=== PATIENT | male | born 1995 | race American Indian/Alaskan Native ===

== ENCOUNTER 2018-01-14 15:11 | Emergency (ER) | payer SELFPAY ==
[2018-01-14] MEDS ORDERED: REGLAN IV ONE (19:26)
[2018-01-14] MEDS ORDERED: TORADOL IV ONE (19:26)
[2018-01-14] MEDS ORDERED: BENADRYL IV ONE (19:26)
[2018-01-14] MEDS ORDERED: NACL 0.9% 1000 ML 1,000 ML IV ONE (19:26)
--- NOTE | 2018-01-14 19:44 | Emergency Department Report ---
Vomiting/Diarrhea - [facility] Chief Complaint: Nausea/Vomiting/Diarrhea Stated Complaint: POSS ALCOHOL POISONING/VOMITING Time Seen by Provider: 01/14/18 19:25 Duration: 3 Days Severity: moderate Nausea/Vomiting Severity: Moderate Diarrhea Severity: None Other History: 22-year-old -[place] male presents to the emergency room for complaint of nausea and vomiting and headache feels is related to alcohol ingestion. Patient reports on Wednesday he had 3 drinks tequila and 1 rum since then he's had reported bloody vomitus and vomiting since Wednesday body aches and headache. ED Review of Systems ROS: Stated complaint: POSS ALCOHOL POISONING/VOMITING Other details as noted in HPI ED Past Medical Hx - Past Medical History Previous Medical History?: No Hx Kidney Stones: No - Surgical History Past Surgical History?: No - Social History Smoking Status: Never Smoker Substance Use Type: Alcohol Vomiting Diarrhea Exam - Exam General: Vital signs noted. No distress. Alert and acting appropriately. Neurologic: Alert and oriented, no deficits. Musculoskeletal: Unremarkable. ED Course Vital Signs 01/14/18 15:39 Temperature 99 F Pulse Rate 92 H Respiratory 16 Rate Blood Pressure 120/77 O2 Sat by Pulse 96 Oximetry - Reevaluation(s) Reevaluation #1: 01/14/18 22:58 Patient has completed 1 L of fluids and reports he feels much better now ED Medical Decision Making - Lab Data Result diagrams: 01/14/18 19:44 01/14/18 19:44 Critical care attestation.: If time is entered above; I have spent that time in minutes in the direct care of this critically ill patient, excluding procedure time. ED Disposition Clinical Impression: Nausea and vomiting Qualifiers: Vomiting type: unspecified Vomiting Intractability: intractable Qualified Code( s): R11.2 - Nausea with vomiting, unspecified Disposition: DC-01 TO HOME OR SELFCARE Is pt being admited?: No Does the pt Need Aspirin: No Condition: Stable Instructions: Gastritis (ED) Additional Instructions: Please continue to drink plenty of fluids such as water and advance her diet as tolerated. If your symptoms persist or gets worse please follow-up with the primary care provider. Referrals: PRIMARY CARE, [Primary Care Provider] - 3-5 Days [facility] [Provider Group] - 3-5 Days Forms: Work/School Release Form(ED), Accompanied Note
[2018-01-14 19:59] LABS: Basophils % (Auto) 0.5 % (0.0-1.8); Eosinophils % (Auto) 0.1 % (0.0-4.3); Hematocrit 40.8 % (35.5-45.6); Hemoglobin 13.6 gm/dl (11.8-15.2); Lymphocytes % (Auto) 30.3 % (13.4-35.0); Mean Corpuscular HGB Conc 34 % (32-34); Mean Corpuscular Hemoglobin 30 pg (28-32); Mean Corpuscular Volume 90 fl (84-94); Monocytes % (Auto) 14.3 % (0.0-7.3); Platelet Count 283 K/mm3 (140-440); Red Blood Count 4.51 M/mm3 (3.65-5.03)
[2018-01-14 20:25] LABS: Benzodiazepines Screen,Urine PRESUMPTIVE NEGATIVE; Cannabinoid Screen,Urine PRESUMPTIVE NEGATIVE; Cocaine Screen,Urine PRESUMPTIVE NEGATIVE; Methadone Screen,Urine PRESUMPTIVE NEGATIVE; Opiate Screen,Urine PRESUMPTIVE NEGATIVE
[2018-01-14 21:01] LABS: Amphetamine Screen,Urine PRESUMPTIVE NEGATIVE
[2018-01-14 21:22] LABS: Alanine Aminotransferase 13 units/L (7-56); Albumin 4.6 g/dL (3.9-5); BUN/Creatinine Ratio 19; Blood Urea Nitrogen 19 mg/dL (9-20); Calcium 9.8 mg/dL (8.4-10.2); Hemolysis Index 24
[2018-01-14 22:37] LABS: Bilirubin,Urine NEG (Negative); Blood,Urine NEG (Negative); Color,Urine Yellow (Yellow); Mucus,Urine 2+ /HPF
[2018-01-14 23:20] VITALS: BP 124/73
== END 2018-01-14 23:20 | disposition home or self-care (01) ==
LOC: ED 15:11
DX: R11.2 Nausea with vomiting, unspecified (principal); Z79.899 Other long term (current) drug therapy
CPT/HCPCS: 36415; 80053; 80307; 81001; 85025; 96361; 96374; 96375; 99283; G0480; J1200; J1885; J2765; J7030; 80320

== ENCOUNTER 2018-02-07 14:15 | Inpatient (IN) | payer SELFPAY ==
[2018-02-07] MEDS ORDERED: NACL 0.9% 1000 ML 1,000 ML IV ONE (14:57)
[2018-02-07] MEDS ORDERED: TYLENOL PO ONE (14:58)
[2018-02-07] MEDS ORDERED: TYLENOL ONE (15:03)
[2018-02-07] MEDS ORDERED: NACL 0.9% 500 ML 500 ML IV ONE (15:23)
[2018-02-07 15:30] LABS: Basophils % (Auto) 0.1 % (0.0-1.8); Hematocrit 40.7 % (35.5-45.6); Hemoglobin 13.7 gm/dl (11.8-15.2); Lymphocytes # (Auto) 2.2 K/mm3 (1.2-5.4); Lymphocytes % (Auto) 21.1 % (13.4-35.0); Mean Corpuscular HGB Conc 34 % (32-34); Mean Corpuscular Hemoglobin 31 pg (28-32); Mean Corpuscular Volume 91 fl (84-94); Monocytes # (Auto) 1.3 K/mm3 (0.0-0.8); Monocytes % (Auto) 12.8 % (0.0-7.3); Platelet Count 278 K/mm3 (140-440); Red Blood Count 4.47 M/mm3 (3.65-5.03); Red Cell Distribution Width 15.5 % (13.2-15.2)
[2018-02-07 15:42] LABS: INR 1.15 (0.87-1.13)
[2018-02-07 15:43] LABS: Partial Thromboplastin Time 35.1 Sec. (24.2-36.6)
[2018-02-07 16:07] LABS: Alanine Aminotransferase 13 units/L (7-56); Albumin 4.4 g/dL (3.9-5); BUN/Creatinine Ratio 8; Blood Urea Nitrogen 9 mg/dL (9-20); Calcium 9.5 mg/dL (8.4-10.2); Hemolysis Index 3; Lipase 14 units/L (13-60)
[2018-02-07 16:47] LABS: INR 1.15 (0.87-1.13)
[2018-02-07] MEDS ORDERED: ZOFRAN IV ONE (17:09)
[2018-02-07] MEDS ORDERED: MORPHINE IV ONE (17:09)
[2018-02-07] MEDS ORDERED: NACL 0.9% 1000 ML IV ONE (17:10)
--- NOTE | 2018-02-07 17:16 | Emergency Department Report ---
ED GI Bleed HPI - General Chief complaint: GI Bleed Stated complaint: BODY PAINS/BLOOD IN STOOL Time Seen by Provider: 02/07/18 16:59 Source: patient Mode of arrival: Ambulatory Limitations: No Limitations - History of Present Illness Initial comments: 22-year-old male with a past medical history of HIV presents to Hospital complaining of rectal pain and blood on his tissue when he wipes after bowel movements for the past one week. Last night he developed generalized body aches and chills and presents to the ER with 101.1 fever. Patient states his CD4 count 2 months ago was 690. He is taking HIV medication. He engages in receptive anal intercourse was last intercourse about one week ago. He complains of sore throat. He denies cough, chest pain, shortness of breath, abdominal pain, nausea, vomiting, diarrhea, or melena. Patient received Tylenol prior to my evaluation Severity scale (0 -10): 6 - Related Data Allergies Allergy/AdvReac Type Severity Reaction Status Date / Time No Known Allergies Allergy Verified 02/07/18 14:53 ED Review of Systems ROS: Stated complaint: BODY PAINS/BLOOD IN STOOL Other details as noted in HPI Comment: All other systems reviewed and negative ED Past Medical Hx - Past Medical History Hx Kidney Stones: No Additional medical history: HIV - Surgical History Past Surgical History?: No - Social History Smoking Status: Never Smoker Substance Use Type: Alcohol ED Physical Exam - General Limitations: No Limitations - Other Other exam information: General: No limitations, patient is alert in no acute distress Head exam: Atraumatic, normocephalic Eyes exam: Normal appearance ENT: Moist mucous membrane, normal oropharynx, no exudates, no thrush Neck exam: Normal inspection, full range of motion, no meningismus nontender Respiratory exam: Clear to auscultation bilateral, no wheezes, rales, crackles Cardiovascular: Normal rate and rhythm, normal heart sounds Abdomen: Soft, nondistended, left lower quadrant tenderness, with normal bowel sounds, no rebound, or guarding Rectal: Anal skin tenderness versus wart. Guaiac positive brown stool without gross blood or melena. No fluctuance and rectal. Or visible abscess Extremity: Full range of motion normal inspection no deformity Back: Normal Inspection, full range of motion, no tenderness Neurologic: Alert, oriented x3, cranial nerves intact, no motor or sensory deficit Psychiatric: normal affect, normal mood Skin: Warm, dry, intact ED Course Vital Signs 02/07/18 02/07/18 02/07/18 14:54 16:01 16:56 Temperature 101.1 F H Pulse Rate 116 H Respiratory 18 16 Rate Blood Pressure 109/73 Blood Pressure [Right] O2 Sat by Pulse 99 99 Oximetry 02/07/18 02/07/18 02/07/18 17:00 17:09 18:30 Temperature Pulse Rate 104 H Respiratory 19 16 16 Rate Blood Pressure 110/78 Blood Pressure [Right] O2 Sat by Pulse 99 100 Oximetry 02/07/18 02/07/18 02/07/18 19:26 20:00 21:00 Temperature 98.2 F Pulse Rate 111 H 99 H 102 H Respiratory 17 15 19 Rate Blood Pressure 107/75 109/69 Blood Pressure 105/67 [Right] O2 Sat by Pulse 97 100 Oximetry - Consultations Consultation #1: 02/07/18 22:[address] Lafleur general surgeon production welder. Will see patient in consult and recommends admission to the hospitalist. ED Medical Decision Making - Lab Data Result diagrams: 02/07/18 15:07 02/07/18 15:07 Lab Results 02/07/18 02/07/18 02/07/18 Range/Units 15:07 15:07 15:07 WBC 10.2 (4.5-11.0) K/mm3 RBC 4.47 (3.65-5.03) M/mm3 Hgb 13.7 (11.8-15.2) gm/dl Hct 40.7 (35.5-45.6) % MCV 91 (84-94) fl MCH 31 (28-32) pg MCHC 34 (32-34) % RDW 15.5 H (13.2-15.2) % Plt Count 278 (140-440) K/mm3 Lymph % (Auto) 21.1 (13.4-35.0) % Stewart % (Auto) 12.8 H (0.0-7.3) % Eos % (Auto) 0.0 (0.0-4.3) % Baso % (Auto) 0.1 (0.0-1.8) % Lymph # 2.2 (1.2-5.4) K/mm3 Stewart # 1.3 H (0.0-0.8) K/mm3 Eos # 0.0 (0.0-0.4) K/mm3 Baso # 0.0 (0.0-0.1) K/mm3 Seg Neutrophils % 66.0 (40.0-70.0) % Seg Neutrophils # 6.8 (1.8-7.7) K/mm3 PT 15.3 H (12.2-14.9) Sec. INR 1.15 H (0.87-1.13) APTT 35.1 (24.2-36.6) Sec. VBG pH (7.320-7.420) Sodium 137 (137-145) mmol/L Potassium 4.5 (3.6-5.0) mmol/L Chloride 99.7 (98-107) mmol/L Carbon Dioxide 26 (22-30) mmol/L Anion Gap 16 mmol/L BUN 9 (9-20) mg/dL Creatinine 1.1 (0.8-1.5) mg/dL Estimated GFR > 60 ml/min BUN/Creatinine Ratio 8 % Glucose 104 H (75-100) mg/dL Lactic Acid (0.7-2.0) mmol/L Calcium 9.5 (8.4-10.2) mg/dL Magnesium (1.7-2.3) mg/dL Total Bilirubin 0.60 (0.1-1.2) mg/dL AST 24 (5-40) units/L ALT 13 (7-56) units/L Alkaline Phosphatase 75 (35-129) units/L Total Protein 9.2 H (6.3-8.2) g/dL Albumin 4.4 (3.9-5) g/dL Albumin/Globulin Ratio 0.9 % Lipase 14 (13-60) units/L Urine Color (Yellow) Urine Turbidity (Clear) Urine pH (5.0-7.0) Ur Specific Mcclelland (1.003-1.030) Urine Protein (Negative) mg/dL Urine Glucose (UA) (Negative) mg/dL Urine Ketones (Negative) mg/dL Urine Blood (Negative) Urine Nitrite (Negative) Urine Bilirubin (Negative) Urine Urobilinogen (<2.0) mg/dL Ur Leukocyte Esterase (Negative) Urine WBC (Auto) (0.0-6.0) /HPF Urine RBC (Auto) (0.0-6.0) /HPF U Epithel Cells (Auto) (0-13.0) /HPF Urine Mucus /HPF Blood Type Antibody Screen 02/07/18 02/07/18 02/07/18 Range/Units 15:07 15:07 16:20 WBC (4.5-11.0) K/mm3 RBC (3.65-5.03) M/mm3 Hgb (11.8-15.2) gm/dl Hct (35.5-45.6) % MCV (84-94) fl MCH (28-32) pg MCHC (32-34) % RDW (13.2-15.2) % Plt Count (140-440) K/mm3 Lymph % (Auto) (13.4-35.0) % Stewart % (Auto) (0.0-7.3) % Eos % (Auto) (0.0-4.3) % Baso % (Auto) (0.0-1.8) % Lymph # (1.2-5.4) K/mm3 Stewart # (0.0-0.8) K/mm3 Eos # (0.0-0.4) K/mm3 Baso # (0.0-0.1) K/mm3 Seg Neutrophils % (40.0-70.0) % Seg Neutrophils # (1.8-7.7) K/mm3 PT (12.2-14.9) Sec. INR (0.87-1.13) APTT (24.2-36.6) Sec. VBG pH (7.320-7.420) Sodium (137-145) mmol/L Potassium (3.6-5.0) mmol/L Chloride (98-107) mmol/L Carbon Dioxide (22-30) mmol/L Anion Gap mmol/L BUN (9-20) mg/dL Creatinine (0.8-1.5) mg/dL Estimated GFR ml/min BUN/Creatinine Ratio % Glucose (75-100) mg/dL Lactic Acid 1.00 (0.7-2.0) mmol/L Calcium (8.4-10.2) mg/dL Magnesium 1.90 (1.7-2.3) mg/dL Total Bilirubin (0.1-1.2) mg/dL AST (5-40) units/L ALT (7-56) units/L Alkaline Phosphatase (35-129) units/L Total Protein (6.3-8.2) g/dL Albumin (3.9-5) g/dL Albumin/Globulin Ratio % Lipase (13-60) units/L Urine Color (Yellow) Urine Turbidity (Clear) Urine pH (5.0-7.0) Ur Specific Mcclelland (1.003-1.030) Urine Protein (Negative) mg/dL Urine Glucose (UA) (Negative) mg/dL Urine Ketones (Negative) mg/dL Urine Blood (Negative) Urine Nitrite (Negative) Urine Bilirubin (Negative) Urine Urobilinogen (<2.0) mg/dL Ur Leukocyte Esterase (Negative) Urine WBC (Auto) (0.0-6.0) /HPF Urine RBC (Auto) (0.0-6.0) /HPF U Epithel Cells (Auto) (0-13.0) /HPF Urine Mucus /HPF Blood Type O NEGATIVE Antibody Screen Negative 02/07/18 02/07/18 02/07/18 Range/Units 16:20 16:20 16:20 WBC (4.5-11.0) K/mm3 RBC (3.65-5.03) M/mm3 Hgb (11.8-15.2) gm/dl Hct (35.5-45.6) % MCV (84-94) fl MCH (28-32) pg MCHC (32-34) % RDW (13.2-15.2) % Plt Count (140-440) K/mm3 Lymph % (Auto) (13.4-35.0) % Stewart % (Auto) (0.0-7.3) % Eos % (Auto) (0.0-4.3) % Baso % (Auto) (0.0-1.8) % Lymph # (1.2-5.4) K/mm3 Stewart # (0.0-0.8) K/mm3 Eos # (0.0-0.4) K/mm3 Baso # (0.0-0.1) K/mm3 Seg Neutrophils % (40.0-70.0) % Seg Neutrophils # (1.8-7.7) K/mm3 PT 15.3 H (12.2-14.9) Sec. INR 1.15 H (0.87-1.13) APTT (24.2-36.6) Sec. VBG pH 7.340 (7.320-7.420) Sodium (137-145) mmol/L Potassium (3.6-5.0) mmol/L Chloride (98-107) mmol/L Carbon Dioxide (22-30) mmol/L Anion Gap mmol/L BUN (9-20) mg/dL Creatinine (0.8-1.5) mg/dL Estimated GFR ml/min BUN/Creatinine Ratio % Glucose (75-100) mg/dL Lactic Acid 1.20 (0.7-2.0) mmol/L Calcium (8.4-10.2) mg/dL Magnesium (1.7-2.3) mg/dL Total Bilirubin (0.1-1.2) mg/dL AST (5-40) units/L ALT (7-56) units/L Alkaline Phosphatase (35-129) units/L Total Protein (6.3-8.2) g/dL Albumin (3.9-5) g/dL Albumin/Globulin Ratio % Lipase (13-60) units/L Urine Color (Yellow) Urine Turbidity (Clear) Urine pH (5.0-7.0) Ur Specific Mcclelland (1.003-1.030) Urine Protein (Negative) mg/dL Urine Glucose (UA) (Negative) mg/dL Urine Ketones (Negative) mg/dL Urine Blood (Negative) Urine Nitrite (Negative) Urine Bilirubin (Negative) Urine Urobilinogen (<2.0) mg/dL Ur Leukocyte Esterase (Negative) Urine WBC (Auto) (0.0-6.0) /HPF Urine RBC (Auto) (0.0-6.0) /HPF U Epithel Cells (Auto) (0-13.0) /HPF Urine Mucus /HPF Blood Type Antibody Screen 02/07/18 02/07/18 Range/Units 19:45 20:02 WBC (4.5-11.0) K/mm3 RBC (3.65-5.03) M/mm3 Hgb (11.8-15.2) gm/dl Hct (35.5-45.6) % MCV (84-94) fl MCH (28-32) pg MCHC (32-34) % RDW (13.2-15.2) % Plt Count (140-440) K/mm3 Lymph % (Auto) (13.4-35.0) % Stewart % (Auto) (0.0-7.3) % Eos % (Auto) (0.0-4.3) % Baso % (Auto) (0.0-1.8) % Lymph # (1.2-5.4) K/mm3 Stewart # (0.0-0.8) K/mm3 Eos # (0.0-0.4) K/mm3 Baso # (0.0-0.1) K/mm3 Seg Neutrophils % (40.0-70.0) % Seg Neutrophils # (1.8-7.7) K/mm3 PT (12.2-14.9) Sec. INR (0.87-1.13) APTT (24.2-36.6) Sec. VBG pH (7.320-7.420) Sodium (137-145) mmol/L Potassium (3.6-5.0) mmol/L Chloride (98-107) mmol/L Carbon Dioxide (22-30) mmol/L Anion Gap mmol/L BUN (9-20) mg/dL Creatinine (0.8-1.5) mg/dL Estimated GFR ml/min BUN/Creatinine Ratio % Glucose (75-100) mg/dL Lactic Acid 1.40 (0.7-2.0) mmol/L Calcium (8.4-10.2) mg/dL Magnesium (1.7-2.3) mg/dL Total Bilirubin (0.1-1.2) mg/dL AST (5-40) units/L ALT (7-56) units/L Alkaline Phosphatase (35-129) units/L Total Protein (6.3-8.2) g/dL Albumin (3.9-5) g/dL Albumin/Globulin Ratio % Lipase (13-60) units/L Urine Color Yellow (Yellow) Urine Turbidity Clear (Clear) Urine pH 5.0 (5.0-7.0) Ur Specific Mcclelland 1.026 (1.003-1.030) Urine Protein <15 mg/dl (Negative) mg/dL Urine Glucose (UA) Neg (Negative) mg/dL Urine Ketones Neg (Negative) mg/dL Urine Blood Mod (Negative) Urine Nitrite Neg (Negative) Urine Bilirubin Neg (Negative) Urine Urobilinogen < 2.0 (<2.0) mg/dL Ur Leukocyte Esterase Neg (Negative) Urine WBC (Auto) 2.0 (0.0-6.0) /HPF Urine RBC (Auto) 50.0 (0.0-6.0) /HPF U Epithel Cells (Auto) 1.0 (0-13.0) /HPF Urine Mucus 1+ /HPF Blood Type Antibody Screen - EKG Data -: EKG Interpreted by Me EKG shows normal: sinus rhythm, axis (qrs 24), QRS complexes (qrsd 83), ST-T waves (no stemi/t inv) Rate: tachycardia (112) - EKG Data When compared to previous EKG there are: previous EKG unavailable - Medical Decision Making Rectal bleeding after bowel movement No gross blood on rectal exam although guaiac positive H&H normal Fever with rectal pain Empirically covered with Zosyn 30 ml/kg bolus of normal saline as per sepsis protocol CT abdomen and pelvis: Borderline findings for acute appendicitis. Patient reexamined after results obtained and persistently has left lower quadrant pain without right lower quadrant tenderness. Case discussed with surgeon production welder and patient will be admitted to hospitalist with surgical consultation and monitoring UA shows moderate blood but no signs of infection - Differential Diagnosis rectal/perirectal abscess, diverticulitis, proctitis Critical Care Time: No Critical care attestation.: If time is entered above; I have spent that time in minutes in the direct care of this critically ill patient, excluding procedure time. ED Disposition Clinical Impression: Fever, Rectal bleeding, Left lower quadrant pain, HIV positive Disposition: OP ADMIT IP TO THIS HOSP Is pt being admited?: Yes Condition: Stable Time of Disposition: 22:08 (Dr. Pitts/Hospitalist)
--- NOTE | 2018-02-07 17:18 | XRay Report ---
FINAL REPORT EXAM: XR CHEST 1V AP HISTORY: sepsis TECHNIQUE: AP portable view of the chest PRIORS: None. FINDINGS: Lines, tubes, and devices: N/A Lungs and pleura: Trachea is normal in position. Lungs are clear of infiltrate, pleural effusion, vascular congestion, or pneumothorax. Cardiomediastinal silhouette: Cardiac and mediastinal silhouettes are unremarkable. Other: Bony structures are intact. IMPRESSION: No acute cardiopulmonary process seen.
[2018-02-07] MEDS ORDERED: ZOSYN/NS 4.5GM/100ML 4.5 GM/100 ML VIAL IV SCH (18:00)
[2018-02-07 20:05] LABS: Bilirubin,Urine NEG (Negative); Blood,Urine MOD (Negative); Color,Urine Yellow (Yellow); Mucus,Urine 1+ /HPF; Protein,Urine <15 mg/dL mg/dL (Negative); Urobilinogen,Urine < 2.0 mg/dL (<2.0)
--- NOTE | 2018-02-07 21:39 | Cat Scan Report ---
FINAL REPORT EXAM: CT ABDOMEN PELVIS W CON HISTORY: rectal pain, fever, LLQ pain TECHNIQUE: Standard enhanced CT of the abdomen and pelvis. Coronal and sagittal reconstruction was also performed. Delayed imaging through the kidneys and bladder was also obtained. Contrast: 100 mL Omnipaque 300 given IV. Oral contrast was given PRIORS: None. FINDINGS: The appendix measures 8 mm in diameter and has mild diffuse wall thickening. It does not fill with oral contrast on delayed imaging. The appendix dips down into the right side of the pelvis. However, no surrounding inflammation is seen in the adjacent fat. No evidence for abscess is seen. These findings are borderline for acute appendicitis and should be correlated clinically. (Axial image 67, series 4, coronal image 78). The rectum appears normal. Within the abdomen, the liver, spleen, pancreas, gallbladder, adrenal glands, and kidneys are unremarkable. No evidence for retroperitoneal or pelvic lymphadenopathy is seen. There is moderate stool present throughout the entire colon. The bowel loops have normal caliber. No soft tissue mass, fluid collection, inflammatory change, or free air is seen within the abdomen or pelvis. Within the pelvis, the bladder is unremarkable. The prostate is normal. No evidence for mass or lymphadenopathy is seen in the pelvis. Images through the upper abdomen include the lung bases which are expanded and clear. Bony structures show no focal abnormalities and are intact. IMPRESSION: 1. Normal appearance to the rectum. 2. The appendix is mildly dilated in size with wall thickening but no surrounding inflammation. It does not fill with oral contrast. These findings can be consistent with acute appendicitis. The appendix dips into the right pelvis.
[2018-02-07] MEDS ORDERED: MORPHINE IV PRN (23:27)
[2018-02-07] MEDS ORDERED: SODIUM CHLORIDE FLUSH SYRINGE 10 ML IV PRN (23:27)
[2018-02-07] MEDS ORDERED: ZOFRAN IV PRN (23:27)
--- NOTE | 2018-02-07 23:30 | History and Physical Report ---
History of Present Illness Date of examination: 02/07/18 History of present illness: 31-year-old man with a history HIV, CD4 count of 690 g the emergency room with complaint of abdominal pain located in the left lower quadrant which she described as sharp, intermittent, lasting for a few seconds, intensity5/10, no radiation, he cannot identify exacerbating factor. Admits to nausea no vomiting. He's been having blood per rectum only with bowel movements, once a day over the last 1 week. Today he complains of fever and chills. Stated he had blood per rectum 5 years ago when he was diagnosed with HIV Review of systems Constitutional: no weight loss, chills, fever Ears, eyes, nose, mouth and throat: no nasal congestion, no nasal discharge, no sinus pressure, no vision change, no red eye. Neck: No neck pain or rigidity. Cardiovascular: no chest pain, palpitations Respiratory: no cough, shortness of breath Gastrointestinal: + abdominal pain hematochezia Genitourinary : no frequency , no hematuria Musculoskeletal: no joint swelling or muscle ache Integumentary: no rash, no pruritis Neurological: no parathesias, no numbness, no focal weakness Endocrine: no cold or heat intolerance, no polyuria or polydipsia Hematologic/Lymphatic: no easy bruising, no easy bleeding, no gland swelling Allergic/Immunologic: no urticaria, no angioedema. PAST MEDICAL HISTORY: HIV PAST SURGICAL HISTORY: None SOCIAL HISTORY: No alcohol, no drugs, tobacco FAMILY HISTORY: Hypertension Medications and Allergies Allergies Allergy/AdvReac Type Severity Reaction Status Date / Time No Known Allergies Allergy Verified 02/07/18 14:53 Home Medications Medication Instructions Recorded Confirmed Last Taken Type Emtricita/Rilpivirine/Tenof Df 1 each PO DAILY 02/07/18 02/07/18 Unknown History [Complera Tablet] Active Meds: Active Medications Piperacillin Sod/Tazobactam Sod (Zosyn/Ns 4.5gm/100ml) 4.5 gm in 100 mls @ 200 mls/hr IV ONCE WINSOME Last Admin: 02/07/18 18:00 Dose: 200 mls/hr Exam - Physical Exam Narrative exam: Gen. appearance: Patient lying in bed, no apparent distress HEENT: Normocephalic, atraumatic, pupils equally round and reactive to light, extraocular movement intact, and no sclericterus,. No JVD or thyromegaly or nodule,neck supple, no carotid bruit ,mucous membranes moist, no exudate or erythema Heart: S1, S2, regular rate and rhythm Lungs: Clear bilaterally, breathing comfortable Abdomen: Positive bowel sounds, tender left lower quadrant, nondistended, no organomegaly Extremity:no edema cyanosis, clubbing Skin: no rash, dry, warm Neuro: Oriented 3, cranial nerves II-12 intact, speech is fluent, motor and sensory intact Rectal: Brown stool, heme positive - Constitutional Vitals: Temp Pulse Resp BP Pulse Ox 98.2 F 102 H 19 109/69 100 02/07/18 19:26 02/07/18 21:00 02/07/18 21:00 02/07/18 21:00 02/07/18 21:00 Results - Labs CBC & Chem 7: 02/07/18 15:07 02/07/18 15:07 Labs: Abnormal lab results 02/07/18 02/07/18 02/07/18 Range/Units 15:07 15:07 15:07 RDW 15.5 H (13.2-15.2) % Kemper % (Auto) 12.8 H (0.0-7.3) % Kemper # 1.3 H (0.0-0.8) K/mm3 PT 15.3 H (12.2-14.9) Sec. INR 1.15 H (0.87-1.13) Glucose 104 H (75-100) mg/dL Total Protein 9.2 H (6.3-8.2) g/dL 02/07/18 Range/Units 16:20 RDW (13.2-15.2) % Kemper % (Auto) (0.0-7.3) % Kemper # (0.0-0.8) K/mm3 PT 15.3 H (12.2-14.9) Sec. INR 1.15 H (0.87-1.13) Glucose (75-100) mg/dL Total Protein (6.3-8.2) g/dL - Imaging and Cardiology Chest x-ray: image reviewed CT scan - abdomen: report reviewed CT scan - pelvis: report reviewed Assessment and Plan Assessment Abdominal pain Possible appendicitis Blood per rectum SIRS Plan Admit to medicine Start IV fluid, IV Zosyn, follow cultures Check serial hemoglobin Consults surgery, GI, IV morphine DVT prophylaxis
[2018-02-08 02:43] LABS: Basophils % (Auto) 0.3 % (0.0-1.8); Eosinophils % (Auto) 0.1 % (0.0-4.3); Hematocrit 36.6 % (35.5-45.6); Hemoglobin 12.3 gm/dl (11.8-15.2); Lymphocytes # (Auto) 1.3 K/mm3 (1.2-5.4); Lymphocytes % (Auto) 16.5 % (13.4-35.0); Mean Corpuscular HGB Conc 34 % (32-34); Mean Corpuscular Hemoglobin 31 pg (28-32); Mean Corpuscular Volume 92 fl (84-94); Monocytes # (Auto) 1.1 K/mm3 (0.0-0.8); Monocytes % (Auto) 13.7 % (0.0-7.3); Platelet Count 207 K/mm3 (140-440); Red Blood Count 3.99 M/mm3 (3.65-5.03); Red Cell Distribution Width 15.2 % (13.2-15.2)
[2018-02-08] MEDS: ZOSYN/NS 4.5GM/100ML 4.5 GM/100 ML VIAL IV SCH ×3 (02:46→17:49)
[2018-02-08] MEDS: NACL 0.9% 1000 ML 1,000 ML IV SCH ×3 (02:47→23:48)
[2018-02-08 02:57] LABS: BUN/Creatinine Ratio 8; Blood Urea Nitrogen 8 mg/dL (9-20); Calcium 8.5 mg/dL (8.4-10.2); Hemolysis Index 4
[2018-02-08 05:28] LABS: Hematocrit 35.1 % (35.5-45.6); Hemoglobin 11.9 gm/dl (11.8-15.2)
[2018-02-08 09:36] LABS: Hematocrit 35.9 % (35.5-45.6); Hemoglobin 12.1 gm/dl (11.8-15.2)
[2018-02-08] MEDS: SODIUM CHLORIDE FLUSH SYRINGE 10 ML IV SCH ×2 (09:45→23:43)
--- NOTE | 2018-02-08 13:19 | Gastroenterology Consultation ---
<FERNY GOOD - Last Filed: 02/08/18 13:45> History of Present Illness - Reason for Consult Consult date: 02/08/18 BPR Requesting physician: GALEN CID - History of Present Illness Patient is a 22 y/o male with PMH of HIV who presented to ED with c/o LLQ abd pain with associated rectal pain and bright red blood on TP after BMs x 1 week. He also admits to generalized body aches and chills with fever noted upon admission. CT showed appendix mildly dilated to which surgery as been consulted but rectum had normal appearance. This afternoon patient was resting in bed w/o acute distress. No active signs of bleeding overnight or this am. No hematemesis or melena. Reports sharp rectal pain with defecation that lasts for seconds in duration along with scant amount of rectal bleeding intermittently on TP after BMs. Symptoms developed after anal intercourse last week. Denies wt loss, CP, SOB, dizziness, N/V, diarrhea, or constipation. Last colonoscopy was in [place] in 2017 which revealed a possible abscess that required draining per patient. Past History Past Medical History: HIV/AIDS Past Surgical History: Other (possible rectal abscess-s/p drainage 2017) Social history: denies: smoking, alcohol abuse Medications and Allergies Allergies Allergy/AdvReac Type Severity Reaction Status Date / Time No Known Allergies Allergy Verified 02/07/18 14:53 Home Medications Medication Instructions Recorded Confirmed Last Taken Type Emtricita/Rilpivirine/Tenof Df 1 each PO DAILY 02/07/18 02/07/18 Unknown History [Complera Tablet] Active Meds: Active Medications Acetaminophen (Tylenol) 650 mg PO Q4H PRN PRN Reason: Pain MILD(1-3)/Fever >100.5/PATEL Sodium Chloride (Nacl 0.9% 1000 Ml) 1,000 mls @ 150 mls/hr IV DIRECT [facility]OME Last Admin: 02/08/18 02:47 Dose: 150 mls/hr Piperacillin Sod/Tazobactam Sod (Zosyn/Ns 4.5gm/100ml) 4.5 gm in 100 mls @ 200 mls/hr IV Q8H [facility]OME; Protocol Last Admin: 02/08/18 09:49 Dose: 200 mls/hr Morphine Sulfate (Morphine) 2 mg IV Q4H PRN PRN Reason: Pain, Moderate (4-6) Ondansetron HCl (Zofran) 4 mg IV Q8H PRN PRN Reason: Nausea And Vomiting Sodium Chloride (Sodium Chloride Flush Syringe 10 Ml) 10 ml IV BID [facility] Last Admin: 02/08/18 09:45 Dose: 10 ml Sodium Chloride (Sodium Chloride Flush Syringe 10 Ml) 10 ml IV PRN PRN PRN Reason: LINE FLUSH Review of Systems - Review of Systems All systems: negative Constitutional: fever, chills Gastrointestinal: BRBPR, other (rectal pain) Exam - Constitutional Vital Signs: Temp Pulse Resp BP Pulse Ox 99.2 F 118 H 20 91/50 96 02/08/18 12:19 02/08/18 12:19 02/08/18 12:19 02/08/18 12:19 02/08/18 12:19 General appearance: no acute distress - Respiratory Respiratory: bilateral: CTA - Cardiovascular Rhythm: other (tachycardia) - Gastrointestinal General gastrointestinal: Present: soft, non-tender, non-distended, normal bowel sounds Rectal Exam: tenderness, stool brown, no mass - Neurologic Neurological: alert and oriented x3 - Labs CBC & Chem 7: 02/08/18 09:23 02/08/18 02:31 Lab Results: Laboratory Results - last 24 hr 02/07/18 02/07/18 02/07/18 15:07 15:07 15:07 WBC 10.2 RBC 4.47 Hgb 13.7 Hct 40.7 MCV 91 MCH 31 MCHC 34 RDW 15.5 H Plt Count 278 Lymph % (Auto) 21.1 [place] % (Auto) 12.8 H Eos % (Auto) 0.0 Baso % (Auto) 0.1 Lymph # 2.2 [place] # 1.3 H Eos # 0.0 Baso # 0.0 Seg Neutrophils % 66.0 Seg Neutrophils # 6.8 PT 15.3 H INR 1.15 H APTT 35.1 VBG pH Sodium 137 Potassium 4.5 Chloride 99.7 Carbon Dioxide 26 Anion Gap 16 BUN 9 Creatinine 1.1 Estimated GFR > 60 BUN/Creatinine Ratio 8 Glucose 104 H Lactic Acid Calcium 9.5 Magnesium Total Bilirubin 0.60 AST 24 ALT 13 Alkaline Phosphatase 75 Total Protein 9.2 H Albumin 4.4 Albumin/Globulin Ratio 0.9 Lipase 14 Urine Color Urine Turbidity Urine pH Ur Specific [place] Urine Protein Urine Glucose (UA) Urine Ketones Urine Blood Urine Nitrite Urine Bilirubin Urine Urobilinogen Ur Leukocyte Esterase Urine WBC (Auto) Urine RBC (Auto) U Epithel Cells (Auto) Urine Mucus Blood Type Antibody Screen 02/07/18 02/07/18 02/07/18 15:07 15:07 16:20 WBC RBC Hgb Hct MCV MCH MCHC RDW Plt Count Lymph % (Auto) [place] % (Auto) Eos % (Auto) Baso % (Auto) Lymph # [place] # Eos # Baso # Seg Neutrophils % Seg Neutrophils # PT INR APTT VBG pH Sodium Potassium Chloride Carbon Dioxide Anion Gap BUN Creatinine Estimated GFR BUN/Creatinine Ratio Glucose Lactic Acid 1.00 Calcium Magnesium 1.90 Total Bilirubin AST ALT Alkaline Phosphatase Total Protein Albumin Albumin/Globulin Ratio Lipase Urine Color Urine Turbidity Urine pH Ur Specific [place] Urine Protein Urine Glucose (UA) Urine Ketones Urine Blood Urine Nitrite Urine Bilirubin Urine Urobilinogen Ur Leukocyte Esterase Urine WBC (Auto) Urine RBC (Auto) U Epithel Cells (Auto) Urine Mucus Blood Type O NEGATIVE Antibody Screen Negative 02/07/18 02/07/18 02/07/18 16:20 16:20 16:20 WBC RBC Hgb Hct MCV MCH MCHC RDW Plt Count Lymph % (Auto) [place] % (Auto) Eos % (Auto) Baso % (Auto) Lymph # [place] # Eos # Baso # Seg Neutrophils % Seg Neutrophils # PT 15.3 H INR 1.15 H APTT VBG pH 7.340 Sodium Potassium Chloride Carbon Dioxide Anion Gap BUN Creatinine Estimated GFR BUN/Creatinine Ratio Glucose Lactic Acid 1.20 Calcium Magnesium Total Bilirubin AST ALT Alkaline Phosphatase Total Protein Albumin Albumin/Globulin Ratio Lipase Urine Color Urine Turbidity Urine pH Ur Specific [place] Urine Protein Urine Glucose (UA) Urine Ketones Urine Blood Urine Nitrite Urine Bilirubin Urine Urobilinogen Ur Leukocyte Esterase Urine WBC (Auto) Urine RBC (Auto) U Epithel Cells (Auto) Urine Mucus Blood Type Antibody Screen 02/07/18 02/07/18 02/08/18 19:45 20:02 02:31 WBC 7.8 RBC 3.99 Hgb 12.3 Hct 36.6 MCV 92 MCH 31 MCHC 34 RDW 15.2 Plt Count 207 Lymph % (Auto) 16.5 [place] % (Auto) 13.7 H Eos % (Auto) 0.1 Baso % (Auto) 0.3 Lymph # 1.3 [place] # 1.1 H Eos # 0.0 Baso # 0.0 Seg Neutrophils % 69.4 Seg Neutrophils # 5.4 PT INR APTT VBG pH Sodium Potassium Chloride Carbon Dioxide Anion Gap BUN Creatinine Estimated GFR BUN/Creatinine Ratio Glucose Lactic Acid 1.40 Calcium Magnesium Total Bilirubin AST ALT Alkaline Phosphatase Total Protein Albumin Albumin/Globulin Ratio Lipase Urine Color Yellow Urine Turbidity Clear Urine pH 5.0 Ur Specific [place] 1.026 Urine Protein <15 mg/dl Urine Glucose (UA) Neg Urine Ketones Neg Urine Blood Mod Urine Nitrite Neg Urine Bilirubin Neg Urine Urobilinogen < 2.0 Ur Leukocyte Esterase Neg Urine WBC (Auto) 2.0 Urine RBC (Auto) 50.0 U Epithel Cells (Auto) 1.0 Urine Mucus 1+ Blood Type Antibody Screen 02/08/18 02/08/18 02/08/18 02:31 04:36 09:23 WBC RBC Hgb 11.9 12.1 Hct 35.1 L 35.9 MCV MCH MCHC RDW Plt Count Lymph % (Auto) [place] % (Auto) Eos % (Auto) Baso % (Auto) Lymph # [place] # Eos # Baso # Seg Neutrophils % Seg Neutrophils # PT INR APTT VBG pH Sodium 139 Potassium 4.1 Chloride 103.8 Carbon Dioxide 24 Anion Gap 15 BUN 8 L Creatinine 1.0 Estimated GFR > 60 BUN/Creatinine Ratio 8 Glucose 100 Lactic Acid Calcium 8.5 Magnesium Total Bilirubin AST ALT Alkaline Phosphatase Total Protein Albumin Albumin/Globulin Ratio Lipase Urine Color Urine Turbidity Urine pH Ur Specific [place] Urine Protein Urine Glucose (UA) Urine Ketones Urine Blood Urine Nitrite Urine Bilirubin Urine Urobilinogen Ur Leukocyte Esterase Urine WBC (Auto) Urine RBC (Auto) U Epithel Cells (Auto) Urine Mucus Blood Type Antibody Screen Assessment and Plan 1.rectal pain 2.BRBPR 3.h/o rectal abscess 4.HIV 5.fever -temp 99.2 -WBC-WNL -CT showed borderline findings for acute appendicitis but rectum normal -surgery consult pending -H/H .35.9- stable -continue to monitor H/H and transfuse as needed -no active signs of bleeding- rectal revealed brown stool w/o blood but rectal pain was reproduced with exam -colonoscopy last year per patient showed a possible abscess that required draining -etiology unclear- possible fissure from recent trauma vs infection vs other( abscess?) -will order MRI of abd/pelvis for further evaluation -consider flex sig based on progress/results -recommend ID consult -continue antibiotics and supportive care -will follow <CORRY PALMER - Last Filed: 02/09/18 13:19> History of Present Illness - History of Present Illness The patient seen and examined. He has no significant rectal discomfort and denies bleeding. He had colonoscopy a year ago. Await MRI, if negative, conservative care. Medications and Allergies Active Meds: Active Medications Acetaminophen (Tylenol) 650 mg PO Q4H PRN PRN Reason: Pain MILD(1-3)/Fever >100.5/PATEL Last Admin: 02/08/18 23:51 Dose: 650 mg Sodium Chloride (Nacl 0.9% 1000 Ml) 1,000 mls @ 150 mls/hr IV DIRECT WINSOME Last Admin: 02/09/18 10:28 Dose: 150 mls/hr Doxycycline Hyclate 100 mg/ (Sodium Chloride) 250 mls @ 250 mls/hr IV Q12HR WINSOME ; Protocol Last Admin: 02/09/18 10:29 Dose: 250 mls/hr Metronidazole (Flagyl 500 Mg/100 Ml) 500 mg in 100 mls @ 100 mls/hr IV Q8HR WINSOME ; Protocol Last Admin: 02/09/18 05:53 Dose: 100 mls/hr Ceftriaxone Sodium (Rocephin/Ns 2 Gm/100 Ml) 2 gm in 100 mls @ 200 mls/hr IV Q24HR WINSOME Last Admin: 02/09/18 13:02 Dose: 200 mls/hr Morphine Sulfate (Morphine) 2 mg IV Q4H PRN PRN Reason: Pain, Moderate (4-6) Ondansetron HCl (Zofran) 4 mg IV Q8H PRN PRN Reason: Nausea And Vomiting Last Admin: 02/08/18 15:36 Dose: 4 mg Sodium Chloride (Sodium Chloride Flush Syringe 10 Ml) 10 ml IV BID [facility] Last Admin: 02/09/18 10:33 Dose: 10 ml Sodium Chloride (Sodium Chloride Flush Syringe 10 Ml) 10 ml IV PRN PRN PRN Reason: LINE FLUSH Valacyclovir HCl (Valtrex) 1,000 mg PO TID [facility] Last Admin: 02/09/18 08:37 Dose: 1,000 mg Exam - Constitutional Vital Signs: Temp Pulse Resp BP Pulse Ox 98.7 F 80 18 105/61 97 02/09/18 11:35 02/09/18 11:35 02/09/18 11:35 02/09/18 11:35 02/09/18 11:35 - Labs CBC & Chem 7: 02/09/18 05:50 02/08/18 02:31 Lab Results: Laboratory Results - last 24 hr 02/08/18 02/08/18 02/08/18 20:45 20:45 Unknown WBC RBC Hgb Hct MCV MCH MCHC RDW Plt Count [place] % (Auto) Add Manual Diff Total Counted Seg Neuts % (Manual) Band Neutrophils % Lymphocytes % (Manual) Reactive Lymphs % (Man) Monocytes % (Manual) Eosinophils % (Manual) Basophils % (Manual) Metamyelocytes % Myelocytes % Promyelocytes % Blast Cells % Nucleated RBC % Seg Neutrophils # Man Band Neutrophils # Lymphocytes # (Manual) Abs React Lymphs (Man) Monocytes # (Manual) Eosinophils # (Manual) Basophils # (Manual) Metamyelocytes # Myelocytes # Promyelocytes # Blast Cells # WBC Morphology Hypersegmented Neuts Hyposegmented Neuts Hypogranular Neuts Smudge Cells Toxic Granulation Toxic Vacuolation Dohle Bodies Pelger-Huet Anomaly Andre Rods Platelet Estimate Clumped Platelets Plt Clumps, EDTA Large Platelets Giant Platelets Platelet Satelliting Plt Morphology Comment RBC Morphology Dimorphic RBCs Polychromasia Hypochromasia Poikilocytosis Anisocytosis Microcytosis Macrocytosis Spherocytes Pappenheimer Bodies Sickle Cells Target Cells Tear Drop Cells Ovalocytes Helmet Cells Beth-Manson Bodies [place] Cells Bite Cells Crenated Cell Elliptocytes Acanthocytes (Spur) Rouleaux Hemoglobin C Crystals Schistocytes Malaria parasites Bola Bodies Hem Pathologist Commnt C-Reactive Protein 6.10 H RPR Nonreactive Group A Strep Rapid Negative 02/09/18 05:50 WBC 3.8 L RBC 3.59 L Hgb 11.1 L Hct 32.9 L MCV 92 MCH 31 MCHC 34 RDW 15.0 Plt Count 176 [place] % (Auto) Door To Door Selling Agent Add Manual Diff Complete Total Counted 100 Seg Neuts % (Manual) 75.0 H Band Neutrophils % 0 Lymphocytes % (Manual) 11.0 L Reactive Lymphs % (Man) 1.0 Monocytes % (Manual) 12.0 H Eosinophils % (Manual) 1.0 Basophils % (Manual) 0 Metamyelocytes % 0 Myelocytes % 0 Promyelocytes % 0 Blast Cells % 0 Nucleated RBC % Not Reportable Seg Neutrophils # Man 2.9 Band Neutrophils # 0.0 Lymphocytes # (Manual) 0.4 L Abs React Lymphs (Man) 0.0 Monocytes # (Manual) 0.5 Eosinophils # (Manual) 0.0 Basophils # (Manual) 0.0 Metamyelocytes # 0.0 Myelocytes # 0.0 Promyelocytes # 0.0 Blast Cells # 0.0 WBC Morphology Not Reportable Hypersegmented Neuts Not Reportable Hyposegmented Neuts Not Reportable Hypogranular Neuts Not Reportable Smudge Cells Not Reportable Toxic Granulation Not Reportable Toxic Vacuolation Not Reportable Dohle Bodies Not Reportable Pelger-Huet Anomaly Not Reportable Andre Rods Not Reportable Platelet Estimate Cons Clumped Platelets Not Reportable Plt Clumps, EDTA Not Reportable Large Platelets Not Reportable Giant Platelets Not Reportable Platelet Satelliting Not Reportable Plt Morphology Comment Not Reportable RBC Morphology Not Reportable Dimorphic RBCs Not Reportable Polychromasia Not Reportable Hypochromasia Not Reportable Poikilocytosis Not Reportable Anisocytosis 1+ Microcytosis Not Reportable Macrocytosis Not Reportable Spherocytes Not Reportable Pappenheimer Bodies Not Reportable Sickle Cells Not Reportable Target Cells Not Reportable Tear Drop Cells Not Reportable Ovalocytes Not Reportable Helmet Cells Not Reportable Beth-Manson Bodies Not Reportable [place] Not Reportable Igor Cells Not Reportable Bite Cells Not Reportable Crenated Cell Not Reportable Elliptocytes Not Reportable Acanthocytes (Spur) Not Reportable Rouleaux Not Reportable Hemoglobin C Crystals Not Reportable Schistocytes Not Reportable Malaria parasites Not Reportable Bola Bodies Not Reportable Hem Pathologist Commnt No C-Reactive Protein RPR Group A Strep Rapid
--- NOTE | 2018-02-08 14:17 | Progress Note ---
Assessment and Plan Assessment and plan: Abdominal pain. Etiology unclear To r/o appendicitis. surgeon consulted Bright red blood per rectum. Monitor H/H GI consulted HIV infection. Consult ID Physician Fever. Blood cultures ordered Full code status History Interval history: Abdominal pain, Bright red blood per rectum Fever Hospitalist Physical - Physical exam Narrative exam: GEN:Not in acute distress, lying in bed HEENT: Normocephalic, atraumatic, Neck: supple, No JVD Lungs: Clear to auscultaion bilaterally, no crackles Heart:S1 and S2 reg, no murmurs, rubs or gallop Abd:soft, non-tender, non-distended, Normal bowel sounds Ext: No edema, clubbing or cyanosis Neuro: Awake, alert, oriented X 3, Moves all extremities - Constitutional Vitals: Temp Pulse Resp BP Pulse Ox 99.2 F 118 H 20 91/50 96 02/08/18 12:19 02/08/18 12:19 02/08/18 12:19 02/08/18 12:19 02/08/18 12:19 Results - Labs CBC & Chem 7: 02/08/18 09:23 02/08/18 02:31 Labs: Laboratory Last Values WBC 7.8 K/mm3 (4.5-11.0) 02/08/18 02:31 RBC 3.99 M/mm3 (3.65-5.03) 02/08/18 02:31 Hgb 12.1 gm/dl (11.8-15.2) 02/08/18 09:23 Hct 35.9 % (35.5-45.6) 02/08/18 09:23 MCV 92 fl (84-94) 02/08/18 02:31 MCH 31 pg (28-32) 02/08/18 02:31 MCHC 34 % (32-34) 02/08/18 02:31 RDW 15.2 % (13.2-15.2) 02/08/18 02:31 Plt Count 207 K/mm3 (140-440) 02/08/18 02:31 Lymph % (Auto) 16.5 % (13.4-35.0) 02/08/18 02:31 [place] % (Auto) 13.7 % (0.0-7.3) H 02/08/18 02:31 Eos % (Auto) 0.1 % (0.0-4.3) 02/08/18 02:31 Baso % (Auto) 0.3 % (0.0-1.8) 02/08/18 02:31 Lymph # 1.3 K/mm3 (1.2-5.4) 02/08/18 02:31 [place] # 1.1 K/mm3 (0.0-0.8) H 02/08/18 02:31 Eos # 0.0 K/mm3 (0.0-0.4) 02/08/18 02:31 Baso # 0.0 K/mm3 (0.0-0.1) 02/08/18 02:31 Seg Neutrophils % 69.4 % (40.0-70.0) 02/08/18 02:31 Seg Neutrophils # 5.4 K/mm3 (1.8-7.7) 02/08/18 02:31 PT 15.3 Sec. (12.2-14.9) H 02/07/18 16:20 INR 1.15 (0.87-1.13) H 02/07/18 16:20 APTT 35.1 Sec. (24.2-36.6) 02/07/18 15:07 VBG pH 7.340 (7.320-7.420) 02/07/18 16:20 Sodium 139 mmol/L (137-145) 02/08/18 02:31 Potassium 4.1 mmol/L (3.6-5.0) 02/08/18 02:31 Chloride 103.8 mmol/L (98-107) 02/08/18 02:31 Carbon Dioxide 24 mmol/L (22-30) 02/08/18 02:31 Anion Gap 15 mmol/L 02/08/18 02:31 BUN 8 mg/dL (9-20) L 02/08/18 02:31 Creatinine 1.0 mg/dL (0.8-1.5) 02/08/18 02:31 Estimated GFR > 60 ml/min 02/08/18 02:31 BUN/Creatinine Ratio 8 % 02/08/18 02:31 Glucose 100 mg/dL (75-100) 02/08/18 02:31 Lactic Acid 1.40 mmol/L (0.7-2.0) 02/07/18 20:02 Calcium 8.5 mg/dL (8.4-10.2) 02/08/18 02:31 Magnesium 1.90 mg/dL (1.7-2.3) 02/07/18 16:20 Total Bilirubin 0.60 mg/dL (0.1-1.2) 02/07/18 15:07 AST 24 units/L (5-40) 02/07/18 15:07 ALT 13 units/L (7-56) 02/07/18 15:07 Alkaline Phosphatase 75 units/L (35-129) 02/07/18 15:07 Total Protein 9.2 g/dL (6.3-8.2) H 02/07/18 15:07 Albumin 4.4 g/dL (3.9-5) 02/07/18 15:07 Albumin/Globulin Ratio 0.9 % 02/07/18 15:07 Lipase 14 units/L (13-60) 02/07/18 15:07 Urine Color Yellow (Yellow) 02/07/18 19:45 Urine Turbidity Clear (Clear) 02/07/18 19:45 Urine pH 5.0 (5.0-7.0) 02/07/18 19:45 Ur Specific [place] 1.026 (1.003-1.030) 02/07/18 19:45 Urine Protein <15 mg/dl mg/dL (Negative) 02/07/18 19:45 Urine Glucose (UA) Neg mg/dL (Negative) 02/07/18 19:45 Urine Ketones Neg mg/dL (Negative) 02/07/18 19:45 Urine Blood Mod (Negative) 02/07/18 19:45 Urine Nitrite Neg (Negative) 02/07/18 19:45 Urine Bilirubin Neg (Negative) 02/07/18 19:45 Urine Urobilinogen < 2.0 mg/dL (<2.0) 02/07/18 19:45 Ur Leukocyte Esterase Neg (Negative) 02/07/18 19:45 Urine WBC (Auto) 2.0 /HPF (0.0-6.0) 02/07/18 19:45 Urine RBC (Auto) 50.0 /HPF (0.0-6.0) 02/07/18 19:45 U Epithel Cells (Auto) 1.0 /HPF (0-13.0) 02/07/18 19:45 Urine Mucus 1+ /HPF 02/07/18 19:45 Blood Type O NEGATIVE 02/07/18 15:07 Antibody Screen Negative 02/07/18 15:07
[2018-02-08] MEDS: TYLENOL PO PRN ×2 (15:36→23:51)
--- NOTE | 2018-02-08 15:50 | Consultation ---
History of Present Illness - Reason for Consult Consult date: 02/08/18 HIV fever Requesting physician: FERNY GOOD - History of Present Illness 31-year-old man with a history HIV since 2012, last TF3=595, VL undetectable in October 2017, his HIV provider is in [place]. He moved to [place] 1 y and 1/2 ago but he has not established HIV care here. He went to [place] in October and saw his PCP. He was admitted on 02/07/18 due to 3 day-history of acute sore throat, malaise, body aches, fever and frontal headache. He also reports abdominal pain located in the left lower quadrant which she described as sharp, intermittent, lasting for a few seconds, intensity5/10, no radiation. Denies nausea, vomiting. Reports blood per rectum only with bowel movements, once a day over the last 1 week. 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 Report occasional ETOH. He is MSM. He reported to one of the providers symptoms developed after anal intercourse last week, however he reported to me that last anal intercouse was 2 months ago. Of note, last colonoscopy was in [place] in 2016 which revealed a possible abscess that required draining per patient. In the ED, temp 101.1, HR 116, R 18, BP 109/73. WBC 10.2. Hg 13.7. Plat 278. Creat 1.1. UA neg. Occult blood positive. CT showed appendix mildly dilated, rectum had normal appearance. Microbiology: Blood cultures: 02/07 ngtd Urine cultures: 02/07 neg Current Antimicrobials: Zosyn 02/08 Previous Antimicrobials: Past History Past Medical History: HIV/AIDS Past Surgical History: Other (possible rectal abscess-s/p drainage 2016) Social history: denies: smoking, alcohol abuse Medications and Allergies Allergies Allergy/AdvReac Type Severity Reaction Status Date / Time No Known Allergies Allergy Verified 02/07/18 14:53 Home Medications Medication Instructions Recorded Confirmed Last Taken Type Emtricita/Rilpivirine/Tenof Df 1 each PO DAILY 02/07/18 02/07/18 Unknown History [Complera Tablet] Active Meds: Active Medications Acetaminophen (Tylenol) 650 mg PO Q4H PRN PRN Reason: Pain MILD(1-3)/Fever >100.5/PATEL Last Admin: 02/08/18 15:36 Dose: 650 mg Sodium Chloride (Nacl 0.9% 1000 Ml) 1,000 mls @ 150 mls/hr IV DIRECT [facility]OME Last Admin: 02/08/18 15:40 Dose: 150 mls/hr Piperacillin Sod/Tazobactam Sod (Zosyn/Ns 4.5gm/100ml) 4.5 gm in 100 mls @ 200 mls/hr IV Q8H [facility]; Protocol Last Admin: 02/08/18 09:49 Dose: 200 mls/hr Morphine Sulfate (Morphine) 2 mg IV Q4H PRN PRN Reason: Pain, Moderate (4-6) Ondansetron HCl (Zofran) 4 mg IV Q8H PRN PRN Reason: Nausea And Vomiting Last Admin: 02/08/18 15:36 Dose: 4 mg Sodium Chloride (Sodium Chloride Flush Syringe 10 Ml) 10 ml IV BID [facility] Last Admin: 02/08/18 09:45 Dose: 10 ml Sodium Chloride (Sodium Chloride Flush Syringe 10 Ml) 10 ml IV PRN PRN PRN Reason: LINE FLUSH Review of Systems All systems: negative (as per HPI) Physical Examination - Physical Exam Narrative exam: General appearance: Alert in NAD, conversant Eyes: anicteric sclerae, moist conjunctivae; no lid-lag; PERRLA HENT: Atraumatic; oropharynx + erthematous edematous tonsils and no mucosal ulcerations/no oral thrush; normal hard and soft palate. Normal external ears. Neck: Trachea midline; supple, no thyromegaly or lymphadenopathy Lungs: CTA, with normal respiratory effort and no intercostal retractions CV: RRR, no murmurs Abdomen: Soft, non-tender; no masses or hepatosplenomegaly Extremities: No peripheral edema or extremity lymphadenopathy Skin: Normal temperature, turgor and texture; no rash, ulcers or subcutaneous nodules Psych: Appropriate affect, alert and oriented to person, place and time. Neuro: alert and oriented x 3. Moving all extermities Lines: No CVL / PICC - Constitutional Vitals: Vital Signs Temp Pulse Resp BP Pulse Ox 99.2 F 118 H 20 91/50 96 02/08/18 12:19 02/08/18 12:19 02/08/18 12:19 02/08/18 12:19 02/08/18 12:19 Temperature -Last 24 Hours Temperature 99.2 F Temperature 99.0 F Temperature 99.9 F Temperature 98.2 F Results - Labs CBC & Chem 7: 02/08/18 09:23 02/08/18 02:31 Labs: Abnormal lab results 02/07/18 02/07/18 02/08/18 Range/Units 15:07 16:20 02:31 Hct (35.5-45.6) % [place] % (Auto) 13.7 H (0.0-7.3) % [place] # 1.1 H (0.0-0.8) K/mm3 PT 15.3 H (12.2-14.9) Sec. INR 1.15 H (0.87-1.13) BUN (9-20) mg/dL Glucose 104 H (75-100) mg/dL Total Protein 9.2 H (6.3-8.2) g/dL 02/08/18 02/08/18 Range/Units 02:31 04:36 Hct 35.1 L (35.5-45.6) % [place] % (Auto) (0.0-7.3) % [place] # (0.0-0.8) K/mm3 PT (12.2-14.9) Sec. INR (0.87-1.13) BUN 8 L (9-20) mg/dL Glucose (75-100) mg/dL Total Protein (6.3-8.2) g/dL Assessment and Plan Assessment: 1) SIRS: Present on admission, manifested by fever, tachycardia, hypotension. Etiology unclear. DDX: Strep throat, influenza, proctitis/rectal abscess/STD. Doubt opportunistic infection. 2) HIV infection: since 2012, last NP8=826, VL undetectable in October 2017, his HIV provider is in [place]. Takes complera. He moved to [place] 1 y and 1/2 ago but he has not established HIV care here. He went to [place] in October and saw his PCP. 3) Rectal pain/bleeding: DDx: proctitis/rectal trauma infected/abscess/STD (HSV/ syphilis/HSV/Chlamydia/LGV). He is MSM. He reported to one of the providers symptoms developed after anal intercourse last week, however he reported to me that last anal intercouse was 2 months ago. Of note, last colonoscopy was in [place] in 2017 which revealed a possible abscess that required draining per patient. -Occult blood positive. -CT showed appendix mildly dilated, rectum had normal appearance. Plan: -follow-up blood cultures -obtain HSV serology, RPR, CRP, GC and Chlamydia in urine -influenza test -strep rapid throat -agree with colonoscopy -stop zosyn -start ceftriaxone, flagyl, doxycycline and acyclovir -continue complera Thank you for your consultation, will follow up with you. Clarissa Chiang MD Infectious Diseases Specialist [facility] ([facility] M [phone] O [phone]
--- NOTE | 2018-02-08 18:49 | Progress Note ---
Assessment and Plan Full consult dictated 22 y/o male c/o night sweats, sore throat, fever and headache. also c/o rectal bleeding. no rectal pain. HIV + active rectal intercourse. Abd soft, non tender. deferred rectal exam at this time since pt has no rectal pain and has already had two rectal exams. CT - reviewed with radiologist. no obvious intra abd source of infection. rec GI eval for colonoscopy. will follow with you 31-year-old man with a history HIV, CD4 count of 690 g the emergency room with complaint of abdominal pain located in the left lower quadrant which she described as sharp, intermittent, lasting for a few seconds, intensity5/10, no radiation, he cannot identify exacerbating factor. Admits to nausea no vomiting. He's been having blood per rectum only with bowel movements, once a day over the last 1 week. Today he complains of fever and chills. Stated he had blood per rectum 5 years ago when he was diagnosed with HIV Selected Entries 02/08/18 12:19 Temperature 99.2 F Pulse Rate 118 H Respiratory 20 Rate Blood Pressure 91/50 Laboratory Tests 02/08/18 02/08/18 02/08/18 02:31 04:36 09:23 WBC 7.8 Hgb 12.3 11.9 12.1 Hct 36.6 35.1 L 35.9 Objective Vital Signs - 12hr 02/08/18 12:19 Temperature 99.2 F Pulse Rate 118 H Respiratory 20 Rate Blood Pressure 91/50 O2 Sat by Pulse 96 Oximetry - Labs 02/08/18 09:23 02/08/18 02:31 Diabetes panel 02/08/18 Range/Units 02:31 Sodium 139 (137-145) mmol/L Potassium 4.1 (3.6-5.0) mmol/L Chloride 103.8 (98-107) mmol/L Carbon Dioxide 24 (22-30) mmol/L BUN 8 L (9-20) mg/dL Creatinine 1.0 (0.8-1.5) mg/dL Glucose 100 (75-100) mg/dL Calcium 8.5 (8.4-10.2) mg/dL Calcium panel 02/08/18 Range/Units 02:31 Calcium 8.5 (8.4-10.2) mg/dL Pituitary panel 02/08/18 Range/Units 02:31 Sodium 139 (137-145) mmol/L Potassium 4.1 (3.6-5.0) mmol/L Chloride 103.8 (98-107) mmol/L Carbon Dioxide 24 (22-30) mmol/L BUN 8 L (9-20) mg/dL Creatinine 1.0 (0.8-1.5) mg/dL Glucose 100 (75-100) mg/dL Calcium 8.5 (8.4-10.2) mg/dL Adrenal panel 02/08/18 Range/Units 02:31 Sodium 139 (137-145) mmol/L Potassium 4.1 (3.6-5.0) mmol/L Chloride 103.8 (98-107) mmol/L Carbon Dioxide 24 (22-30) mmol/L BUN 8 L (9-20) mg/dL Creatinine 1.0 (0.8-1.5) mg/dL Glucose 100 (75-100) mg/dL Calcium 8.5 (8.4-10.2) mg/dL
[2018-02-08] MEDS: ROCEPHIN/NS 2 GM/100 ML 2 GM/100 ML BAG IV SCH (21:21)
[2018-02-08] MEDS: DOXYCYCLINE HYCLATE 100 MG in NACL 0.9% 250ML 250 ML IV SCH (21:24)
[2018-02-08] MEDS: FLAGYL 500 MG/100 ML 500 MG/100 ML BAG IV SCH (23:42)
--- NOTE | 2018-02-09 04:46 | Consultation ---
REASON FOR CONSULTATION: Rectal bleeding. HISTORY OF PRESENT ILLNESS: The patient is a 22-year-old gentleman who was admitted to the hospital with chief complaint of sweating, sore throat, headache, and fever. Denies any nausea or vomiting. The patient also states he has noted some recent rectal bleeding. The patient is HIV positive and does admit to active rectal intercourse. PAST MEDICAL HISTORY: Pertinent for HIV. PAST SURGICAL HISTORY: Negative. ALLERGIES: No known allergies. MEDICATIONS: HIV meds. FAMILY HISTORY: Negative. SOCIAL HISTORY: Occasional ethanol intake. Denies any smoking. PHYSICAL EXAMINATION: GENERAL: At this time reveals this gentleman to be awake, alert, cooperative, in no acute distress. VITAL SIGNS: Shown him to be running a low grade temperature of 99.2, blood pressure is 91/50, pulse 118, respirations of 20. ABDOMEN: Examination of the abdomen reveals to be soft and nontender at present. RECTAL: Has been deferred because the patient states he has no rectal pain and he has already had two rectal. LABORATORY DATA: A recent blood work includes a CBC which shows a white count of 7.8, H and H is 12.1 and 35.9, which is stable from a prior 11.9 and 35. Electrolytes were essentially within normal limits. Urinalysis is clear and no real white cells. RADIOLOGICAL DATA: A CT scan of the abdomen was performed that I have reviewed with the radiologist. Original reading by the [facility] personnel could not rule out appendicitis, but in review with Dr. Rowe today, there is no evidence of any periappendiceal inflammation and no real evidence of appendicitis. The patient's abdomen is soft and there is no right lower quadrant tenderness at this time. Also, there is no real evidence for any intra-abdominal source of the patient's sepsis. Rectum also appears normal. No evidence of any fluid collections or abscesses. ASSESSMENT AND PLAN: At this time is that of a 22-year-old HIV-positive patient, rule out HIV as a source of his sweating, fevers, etc. Need to continue workup for primary source of any other infection. Also, would recommend GI evaluation and colonoscopy. We will follow with you pending findings of colonoscopy. JOB# [id number] FP/NTS
[2018-02-09] MEDS: FLAGYL 500 MG/100 ML 500 MG/100 ML BAG IV SCH ×3 (05:53→22:50)
[2018-02-09 06:47] LABS: Hematocrit 32.9 % (35.5-45.6); Hemoglobin 11.1 gm/dl (11.8-15.2); Mean Corpuscular HGB Conc 34 % (32-34); Mean Corpuscular Hemoglobin 31 pg (28-32); Mean Corpuscular Volume 92 fl (84-94); Platelet Count 176 K/mm3 (140-440); Red Blood Count 3.59 M/mm3 (3.65-5.03)
[2018-02-09] MEDS: VALTREX PO SCH ×2 (08:37→13:37)
[2018-02-09 09:14] LABS: Anisocytosis 1+; Basophils % (Manual) 0 % (0.0-1.8); Platelet Estimate Cons; Total Cells Counted 100
--- NOTE | 2018-02-09 09:25 | Progress Note ---
Assessment and Plan Assessment and plan: Abdominal pain. Etiology unclear For MRI Abdomen today to further evaluate Appendicitis. surgeon consulted Bright red blood per rectum. Monitor H/H GI following HIV infection. ID Physician following Fever. Blood cultures ordered Full code status History Interval history: Abdominal pain, Bright red blood per rectum Fever Hospitalist Physical - Physical exam Narrative exam: GEN:Not in acute distress, lying in bed HEENT: Normocephalic, atraumatic, Neck: supple, No JVD Lungs: Clear to auscultaion bilaterally, no crackles Heart:S1 and S2 reg, no murmurs, rubs or gallop Abd:soft, non-tender, non-distended, Normal bowel sounds Ext: No edema, clubbing or cyanosis Neuro: Awake, alert, oriented X 3, Moves all extremities - Constitutional Vitals: Temp Pulse Resp BP Pulse Ox 98.4 F 88 16 107/71 97 02/09/18 05:42 02/09/18 05:42 02/09/18 05:42 02/09/18 05:42 02/09/18 05:42 Results - Labs CBC & Chem 7: 02/09/18 05:50 02/08/18 02:31 Labs: Laboratory Last Values WBC 3.8 K/mm3 (4.5-11.0) L 02/09/18 05:50 RBC 3.59 M/mm3 (3.65-5.03) L 02/09/18 05:50 Hgb 11.1 gm/dl (11.8-15.2) L 02/09/18 05:50 Hct 32.9 % (35.5-45.6) L 02/09/18 05:50 MCV 92 fl (84-94) 02/09/18 05:50 MCH 31 pg (28-32) 02/09/18 05:50 MCHC 34 % (32-34) 02/09/18 05:50 RDW 15.0 % (13.2-15.2) 02/09/18 05:50 Plt Count 176 K/mm3 (140-440) 02/09/18 05:50 Lymph % (Auto) 16.5 % (13.4-35.0) 02/08/18 02:31 [place] % (Auto) Admeasurer 02/09/18 05:50 Eos % (Auto) 0.1 % (0.0-4.3) 02/08/18 02:31 Baso % (Auto) 0.3 % (0.0-1.8) 02/08/18 02:31 Lymph # 1.3 K/mm3 (1.2-5.4) 02/08/18 02:31 [place] # 1.1 K/mm3 (0.0-0.8) H 02/08/18 02:31 Eos # 0.0 K/mm3 (0.0-0.4) 02/08/18 02:31 Baso # 0.0 K/mm3 (0.0-0.1) 02/08/18 02:31 Add Manual Diff Complete 02/09/18 05:50 Total Counted 100 02/09/18 05:50 Seg Neutrophils % 69.4 % (40.0-70.0) 02/08/18 02:31 Seg Neuts % (Manual) 75.0 % (40.0-70.0) H 02/09/18 05:50 Band Neutrophils % 0 % 02/09/18 05:50 Lymphocytes % (Manual) 11.0 % (13.4-35.0) L 02/09/18 05:50 Reactive Lymphs % (Man) 1.0 % 02/09/18 05:50 Monocytes % (Manual) 12.0 % (0.0-7.3) H 02/09/18 05:50 Eosinophils % (Manual) 1.0 % (0.0-4.3) 02/09/18 05:50 Basophils % (Manual) 0 % (0.0-1.8) 02/09/18 05:50 Metamyelocytes % 0 % 02/09/18 05:50 Myelocytes % 0 % 02/09/18 05:50 Promyelocytes % 0 % 02/09/18 05:50 Blast Cells % 0 % 02/09/18 05:50 Nucleated RBC % Not Reportable 02/09/18 05:50 Seg Neutrophils # 5.4 K/mm3 (1.8-7.7) 02/08/18 02:31 Seg Neutrophils # Man 2.9 K/mm3 (1.8-7.7) 02/09/18 05:50 Band Neutrophils # 0.0 K/mm3 02/09/18 05:50 Lymphocytes # (Manual) 0.4 K/mm3 (1.2-5.4) L 02/09/18 05:50 Abs React Lymphs (Man) 0.0 K/mm3 02/09/18 05:50 Monocytes # (Manual) 0.5 K/mm3 (0.0-0.8) 02/09/18 05:50 Eosinophils # (Manual) 0.0 K/mm3 (0.0-0.4) 02/09/18 05:50 Basophils # (Manual) 0.0 K/mm3 (0.0-0.1) 02/09/18 05:50 Metamyelocytes # 0.0 K/mm3 02/09/18 05:50 Myelocytes # 0.0 K/mm3 02/09/18 05:50 Promyelocytes # 0.0 K/mm3 02/09/18 05:50 Blast Cells # 0.0 K/mm3 02/09/18 05:50 WBC Morphology Not Reportable 02/09/18 05:50 Hypersegmented Neuts Not Reportable 02/09/18 05:50 Hyposegmented Neuts Not Reportable 02/09/18 05:50 Hypogranular Neuts Not Reportable 02/09/18 05:50 Smudge Cells Not Reportable 02/09/18 05:50 Toxic Granulation Not Reportable 02/09/18 05:50 Toxic Vacuolation Not Reportable 02/09/18 05:50 Dohle Bodies Not Reportable 02/09/18 05:50 Pelger-Huet Anomaly Not Reportable 02/09/18 05:50 Andre Rods Not Reportable 02/09/18 05:50 Platelet Estimate Cons 02/09/18 05:50 Clumped Platelets Not Reportable 02/09/18 05:50 Plt Clumps, EDTA Not Reportable 02/09/18 05:50 Large Platelets Not Reportable 02/09/18 05:50 Giant Platelets Not Reportable 02/09/18 05:50 Platelet Satelliting Not Reportable 02/09/18 05:50 Plt Morphology Comment Not Reportable 02/09/18 05:50 RBC Morphology Not Reportable 02/09/18 05:50 Dimorphic RBCs Not Reportable 02/09/18 05:50 Polychromasia Not Reportable 02/09/18 05:50 Hypochromasia Not Reportable 02/09/18 05:50 Poikilocytosis Not Reportable 02/09/18 05:50 Anisocytosis 1+ 02/09/18 05:50 Microcytosis Not Reportable 02/09/18 05:50 Macrocytosis Not Reportable 02/09/18 05:50 Spherocytes Not Reportable 02/09/18 05:50 Pappenheimer Bodies Not Reportable 02/09/18 05:50 Sickle Cells Not Reportable 02/09/18 05:50 Target Cells Not Reportable 02/09/18 05:50 Tear Drop Cells Not Reportable 02/09/18 05:50 Ovalocytes Not Reportable 02/09/18 05:50 Helmet Cells Not Reportable 02/09/18 05:50 [place] Bodies Not Reportable 02/09/18 05:50 [place] Rings Not Reportable 02/09/18 05:50 [place] Cells Not Reportable 02/09/18 05:50 Bite Cells Not Reportable 02/09/18 05:50 Crenated Cell Not Reportable 02/09/18 05:50 Elliptocytes Not Reportable 02/09/18 05:50 Acanthocytes (Spur) Not Reportable 02/09/18 05:50 Rouleaux Not Reportable 02/09/18 05:50 Hemoglobin C Crystals Not Reportable 02/09/18 05:50 Schistocytes Not Reportable 02/09/18 05:50 Malaria parasites Not Reportable 02/09/18 05:50 Bola Bodies Not Reportable 02/09/18 05:50 Hem Pathologist Commnt No 02/09/18 05:50 PT 15.3 Sec. (12.2-14.9) H 02/07/18 16:20 INR 1.15 (0.87-1.13) H 02/07/18 16:20 APTT 35.1 Sec. (24.2-36.6) 02/07/18 15:07 VBG pH 7.340 (7.320-7.420) 02/07/18 16:20 Sodium 139 mmol/L (137-145) 02/08/18 02:31 Potassium 4.1 mmol/L (3.6-5.0) 02/08/18 02:31 Chloride 103.8 mmol/L (98-107) 02/08/18 02:31 Carbon Dioxide 24 mmol/L (22-30) 02/08/18 02:31 Anion Gap 15 mmol/L 02/08/18 02:31 BUN 8 mg/dL (9-20) L 02/08/18 02:31 Creatinine 1.0 mg/dL (0.8-1.5) 02/08/18 02:31 Estimated GFR > 60 ml/min 02/08/18 02:31 BUN/Creatinine Ratio 8 % 02/08/18 02:31 Glucose 100 mg/dL (75-100) 02/08/18 02:31 Lactic Acid 1.40 mmol/L (0.7-2.0) 02/07/18 20:02 Calcium 8.5 mg/dL (8.4-10.2) 02/08/18 02:31 Magnesium 1.90 mg/dL (1.7-2.3) 02/07/18 16:20 Total Bilirubin 0.60 mg/dL (0.1-1.2) 02/07/18 15:07 AST 24 units/L (5-40) 02/07/18 15:07 ALT 13 units/L (7-56) 02/07/18 15:07 Alkaline Phosphatase 75 units/L (35-129) 02/07/18 15:07 C-Reactive Protein 6.10 mg/dL (0.00-1.30) H 02/08/18 20:45 Total Protein 9.2 g/dL (6.3-8.2) H 02/07/18 15:07 Albumin 4.4 g/dL (3.9-5) 02/07/18 15:07 Albumin/Globulin Ratio 0.9 % 02/07/18 15:07 Lipase 14 units/L (13-60) 02/07/18 15:07 Urine Color Yellow (Yellow) 02/07/18 19:45 Urine Turbidity Clear (Clear) 02/07/18 19:45 Urine pH 5.0 (5.0-7.0) 02/07/18 19:45 Ur Specific [place] 1.026 (1.003-1.030) 02/07/18 19:45 Urine Protein <15 mg/dl mg/dL (Negative) 02/07/18 19:45 Urine Glucose (UA) Neg mg/dL (Negative) 02/07/18 19:45 Urine Ketones Neg mg/dL (Negative) 02/07/18 19:45 Urine Blood Mod (Negative) 02/07/18 19:45 Urine Nitrite Neg (Negative) 02/07/18 19:45 Urine Bilirubin Neg (Negative) 02/07/18 19:45 Urine Urobilinogen < 2.0 mg/dL (<2.0) 02/07/18 19:45 Ur Leukocyte Esterase Neg (Negative) 02/07/18 19:45 Urine WBC (Auto) 2.0 /HPF (0.0-6.0) 02/07/18 19:45 Urine RBC (Auto) 50.0 /HPF (0.0-6.0) 02/07/18 19:45 U Epithel Cells (Auto) 1.0 /HPF (0-13.0) 02/07/18 19:45 Urine Mucus 1+ /HPF 02/07/18 19:45 Group A Strep Rapid Negative (Negative) 02/08/18 Unknown Blood Type O NEGATIVE 02/07/18 15:07 Antibody Screen Negative 02/07/18 15:07
--- NOTE | 2018-02-09 09:27 | Progress Note ---
Assessment and Plan Assessment: 1) SIRS: Improving. Etiology unclear. DDX: Strep throat, influenza, proctitis/ rectal abscess/STD. Doubt opportunistic infection. - Rapid Strep test negative - Blood culture - ngtd -Urine culture - ngtd -Chest xray - neg 2) HIV infection: since 2012, last IT2=701, VL undetectable in October 2017, his HIV provider is in [place]. Takes complera. He moved to [place] 1 y and 1/2 ago but he has not established HIV care here. He went to [place] in October and saw his PCP -CRP - 6.1. 3) Rectal pain/bleeding: DDx: proctitis/rectal trauma infected/abscess/STD (HSV/ syphilis/HSV/Chlamydia/LGV). He is MSM. He reported to one of the providers symptoms developed after anal intercourse last week, however he reported to me that last anal intercouse was 2 months ago. Of note, last colonoscopy was in [place] in 2016 which revealed a possible abscess that required draining per patient. -Occult blood positive. -CT showed appendix mildly dilated, rectum had normal appearance. Plan: -follow up on HSV serology, RPR -follow up on Influeza test -agree with colonoscopy- -continue ceftriaxone, D2 continue, flagyl, D2 continue, doxycycline, D2 continue valtrex -continue [facility] M: [phone] O:[phone] Subjective Date of service: 02/09/18 Interval history: Patient was sitting up in bed. Patient stated that his throat was still hurting today, but he felt better otherwise. Blood cultures: 02/07 ngtd Urine cultures: 02/07 neg Current Antimicrobials: Zosyn 02/08 Doxycyline 02/08 flagyl - 02/08 Previous Antimicrobials: Objective - Exam Narrative Exam: eneral appearance: Alert in NAD, conversant Eyes: anicteric sclerae, moist conjunctivae; no lid-lag; PERRLA HENT: Atraumatic; oropharynx + erthematous edematous tonsils and no mucosal ulcerations/no oral thrush; normal hard and soft palate. Normal external ears. Neck: Trachea midline; supple, no thyromegaly or lymphadenopathy Lungs: CTA, with normal respiratory effort and no intercostal retractions CV: RRR, no murmurs Abdomen: Soft, non-tender; no masses or hepatosplenomegaly Extremities: No peripheral edema or extremity lymphadenopathy Skin: Normal temperature, turgor and texture; no rash, ulcers or subcutaneous nodules Psych: Appropriate affect, alert and oriented to person, place and time. Neuro: alert and oriented x 3. Moving all extermities Lines: No CVL / PICC - Constitutional Vitals: Vital Signs Temp Pulse Resp BP Pulse Ox 98.4 F 88 16 107/71 97 02/09/18 05:42 02/09/18 05:42 02/09/18 05:42 02/09/18 05:42 02/09/18 05:42 Temperature -Last 24 Hours Temperature 98.4 F Temperature 97.8 F Temperature 97.6 F Temperature 99.2 F - Labs CBC & Chem 7: 02/09/18 05:50 02/08/18 02:31 Labs: Abnormal lab results 02/08/18 02/09/18 Range/Units 20:45 05:50 WBC 3.8 L (4.5-11.0) K/mm3 RBC 3.59 L (3.65-5.03) M/mm3 Hgb 11.1 L (11.8-15.2) gm/dl Hct 32.9 L (35.5-45.6) % Seg Neuts % (Manual) 75.0 H (40.0-70.0) % Lymphocytes % (Manual) 11.0 L (13.4-35.0) % Monocytes % (Manual) 12.0 H (0.0-7.3) % Lymphocytes # (Manual) 0.4 L (1.2-5.4) K/mm3 C-Reactive Protein 6.10 H (0.00-1.30) mg/dL
[2018-02-09] MEDS: NACL 0.9% 1000 ML 1,000 ML IV SCH (10:28)
[2018-02-09] MEDS: DOXYCYCLINE HYCLATE 100 MG in NACL 0.9% 250ML 250 ML IV SCH ×2 (10:29→22:48)
[2018-02-09] MEDS: SODIUM CHLORIDE FLUSH SYRINGE 10 ML IV SCH (10:33)
--- NOTE | 2018-02-09 11:41 | Gastroenterology Progress Note ---
Assessment and Plan 1.rectal pain 2.BRBPR 3.h/o rectal abscess 4.HIV 5.fever -afebrile -WBC 3.8 -H/H .32/9-stable -CT showed borderline findings for acute appendicitis but rectum normal -surgery consult pending -H/H .35.9- stable -continue to monitor H/H and transfuse as needed -BM x 1 this am with continued rectal pain and scant blood on TP only -colonoscopy 2017 in [place] per patient showed a possible abscess that required draining -etiology unclear- possible fissure from recent trauma vs infection vs other( abscess?) -MRI of pelvis pending for further evaluation -will consider flex sig based on progress/results -ID and surgery following -continue antibiotics and supportive care -will follow Subjective Date of service: 02/09/18 Principal diagnosis: BPR Interval history: Patient w/o acute distress. Reports BM x 1 this am with continued rectal pain and scant amount of bleeding on TP only. No abd pain or N/V. Objective - Constitutional Vitals: Temp Pulse Resp BP Pulse Ox 98.4 F 88 16 107/71 97 02/09/18 05:42 02/09/18 05:42 02/09/18 05:42 02/09/18 05:42 02/09/18 05:42 General appearance: no acute distress - Respiratory Respiratory: bilateral: CTA - Cardiovascular Rhythm: regular Heart Sounds: Present: S1 & S2 - Gastrointestinal General gastrointestinal: Present: soft, non-tender, non-distended, normal bowel sounds - Neurologic Neurological: alert and oriented x3 - Labs CBC & Chem 7: 02/09/18 05:50 02/08/18 02:31 Labs: Laboratory Results - last 24 hr 02/08/18 02/08/18 02/09/18 20:45 Unknown 05:50 WBC 3.8 L RBC 3.59 L Hgb 11.1 L Hct 32.9 L MCV 92 MCH 31 MCHC 34 RDW 15.0 Plt Count 176 [place] % (Auto) Electronic Equipment Repairer Add Manual Diff Complete Total Counted 100 Seg Neuts % (Manual) 75.0 H Band Neutrophils % 0 Lymphocytes % (Manual) 11.0 L Reactive Lymphs % (Man) 1.0 Monocytes % (Manual) 12.0 H Eosinophils % (Manual) 1.0 Basophils % (Manual) 0 Metamyelocytes % 0 Myelocytes % 0 Promyelocytes % 0 Blast Cells % 0 Nucleated RBC % Not Reportable Seg Neutrophils # Man 2.9 Band Neutrophils # 0.0 Lymphocytes # (Manual) 0.4 L Abs React Lymphs (Man) 0.0 Monocytes # (Manual) 0.5 Eosinophils # (Manual) 0.0 Basophils # (Manual) 0.0 Metamyelocytes # 0.0 Myelocytes # 0.0 Promyelocytes # 0.0 Blast Cells # 0.0 WBC Morphology Not Reportable Hypersegmented Neuts Not Reportable Hyposegmented Neuts Not Reportable Hypogranular Neuts Not Reportable Smudge Cells Not Reportable Toxic Granulation Not Reportable Toxic Vacuolation Not Reportable Dohle Bodies Not Reportable Pelger-Huet Anomaly Not Reportable Andre Rods Not Reportable Platelet Estimate Cons Clumped Platelets Not Reportable Plt Clumps, EDTA Not Reportable Large Platelets Not Reportable Giant Platelets Not Reportable Platelet Satelliting Not Reportable Plt Morphology Comment Not Reportable RBC Morphology Not Reportable Dimorphic RBCs Not Reportable Polychromasia Not Reportable Hypochromasia Not Reportable Poikilocytosis Not Reportable Anisocytosis 1+ Microcytosis Not Reportable Macrocytosis Not Reportable Spherocytes Not Reportable Pappenheimer Bodies Not Reportable Sickle Cells Not Reportable Target Cells Not Reportable Tear Drop Cells Not Reportable Ovalocytes Not Reportable Helmet Cells Not Reportable [place] Bodies Not Reportable [place] Rings Not Reportable [place] Cells Not Reportable Bite Cells Not Reportable Crenated Cell Not Reportable Elliptocytes Not Reportable Acanthocytes (Spur) Not Reportable Rouleaux Not Reportable Hemoglobin C Crystals Not Reportable Schistocytes Not Reportable Malaria parasites Not Reportable Bola Bodies Not Reportable Hem Pathologist Commnt No C-Reactive Protein 6.10 H Group A Strep Rapid Negative
[2018-02-09] MEDS: ROCEPHIN/NS 2 GM/100 ML 2 GM/100 ML BAG IV SCH ×2 (13:02→13:03)
--- NOTE | 2018-02-09 13:05 | Progress Note ---
Assessment and Plan Pt feeling well without compl. nelida liq diet Abd soft, non tender stable awaiting colonoscopy and MRI as per GI will follow prn. call if MRI or endoscopy finding warrant Selected Entries 02/09/18 11:35 Temperature 98.7 F Pulse Rate 80 Respiratory 18 Rate Blood Pressure 105/61 Laboratory Tests 02/09/18 05:50 WBC 3.8 L Hgb 11.1 L Hct 32.9 L Objective Vital Signs - 12hr 02/09/18 02/09/18 05:42 11:35 Temperature 98.4 F 98.7 F Pulse Rate 88 80 Respiratory 16 18 Rate Blood Pressure 107/71 105/61 O2 Sat by Pulse 97 97 Oximetry - Labs 02/09/18 05:50 02/08/18 02:31
[2018-02-10] MEDS: FLAGYL 500 MG/100 ML 500 MG/100 ML BAG IV SCH ×3 (06:08→22:12)
[2018-02-10] MEDS: VALTREX PO SCH ×4 (06:09→22:12)
[2018-02-10 10:42] LABS: Hematocrit 34.9 % (35.5-45.6); Hemoglobin 11.9 gm/dl (11.8-15.2)
[2018-02-10] MEDS: DOXYCYCLINE HYCLATE 100 MG in NACL 0.9% 250ML 250 ML IV SCH ×2 (10:50→22:12)
[2018-02-10] MEDS: ROCEPHIN/NS 2 GM/100 ML 2 GM/100 ML BAG IV SCH (10:50)
[2018-02-10] MEDS: SODIUM CHLORIDE FLUSH SYRINGE 10 ML IV SCH ×2 (10:51→22:12)
--- NOTE | 2018-02-10 13:35 | Gastroenterology Progress Note ---
Assessment and Plan - Patient Problems (1) Anorectal pain Current Visit: Yes Status: Acute Plan to address problem: Symptoms have been mild and are essentially resolved. The patient had colonoscopy in 2017. No strong clinical suspicion of abscess, but likely has minor fissure or trauma. Will not plan endoscopic study in light of resolving symptoms. Not sure when MRI will be done. I will s/o at this point. Please re consult if I can be of assistance. (2) Rectal bleeding Current Visit: Yes Status: Acute Subjective Date of service: 02/10/18 Principal diagnosis: minor rectal bleeding and anorectal pain Interval history: The patient reports no bleeding and minimal to no anal discomfort. Objective - Constitutional Vitals: Temp Pulse Resp BP Pulse Ox 98.5 F 83 18 111/71 99 02/10/18 11:58 02/10/18 11:58 02/10/18 11:58 02/10/18 11:58 02/10/18 11:58 General appearance: no acute distress - EENT ENT: hearing intact, clear oral mucosa, dentition normal - Respiratory Respiratory effort: normal Respiratory: bilateral: CTA - Cardiovascular Rhythm: regular - Extremities Extremities: pulses intact, No edema, normal color, Full ROM - Gastrointestinal General gastrointestinal: Present: soft, non-tender, non-distended, normal bowel sounds - Neurologic Neurological: alert and oriented x3 - Labs CBC & Chem 7: 02/10/18 10:07 02/08/18 02:31 Labs: Laboratory Results - last 24 hr 02/10/18 10:07 Hgb 11.9 Hct 34.9 L
--- NOTE | 2018-02-10 13:54 | Progress Note ---
Assessment and Plan Assessment: 1) SIRS: Improving. Etiology unclear. DDX:, influenza, proctitis/rectal abscess /STD.. Doubt opportunistic infection. - Rapid Strep test negative -RPR- negative - Blood culture - ngtd -Urine culture - ngtd -Chest xray - neg 2) HIV infection: since 2012, last DY2=349, VL undetectable in October 2017, his HIV provider is in [place]. Takes complera. He moved to [place] 1 y and 1/2 ago but he has not established HIV care here. He went to [place] in October and saw his PCP -CRP - 6.1. 3) Rectal pain/bleeding: DDx: proctitis/rectal trauma infected/abscess/STD (HSV/ syphilis/HSV/Chlamydia/LGV). He is MSM. He reported to one of the providers symptoms developed after anal intercourse last week, however he reported to me that last anal intercouse was 2 months ago. Of note, last colonoscopy was in [place] in 2016 which revealed a possible abscess that required draining per patient. -Occult blood positive. -CT showed appendix mildly dilated, rectum had normal appearance - The patient had a colonoscopy in 2016. Per GI, "no strong clinical suspicion of abscess, but likely has minor fissure or trauma". Edndoscopic study not done in light of resolving symptoms.. Plan: -follow up on HSV serology -follow up on Influeza test -continue ceftriaxone, D2 continue, flagyl, D3 continue, doxycycline, D3 continue valtrex -continue complera Upon discharge will treat with Doxycycline 100 mg po, 2x a day for a total of 21 days ending 02-28-18 and Augmentin 875 mg, po every 12 hours for a total of 14 days ending 02-22-18 for proctitis. Will follow up in the office 03-03-18. [facility] M: [phone] O:[phone] Subjective Date of service: 02/10/18 Principal diagnosis: minor rectal bleeding and anorectal pain Interval history: Patient was sitting up in bed. Patient stated that he was feeling much better today. Patient stated that he was anxious to go home.. Blood cultures: 02/07 ngtd Urine cultures: 02/07 neg Current Antimicrobials: ceftriaxone 02/09 Doxycyline 02/08 flagyl - 02/08 Previous Antimicrobials: Objective - Exam Narrative Exam: eneral appearance: Alert in NAD, conversant Eyes: anicteric sclerae, moist conjunctivae; no lid-lag; PERRLA HENT: Atraumatic; oropharynx + erthematous edematous tonsils and no mucosal ulcerations/no oral thrush; normal hard and soft palate. Normal external ears. Neck: Trachea midline; supple, no thyromegaly or lymphadenopathy Lungs: CTA, with normal respiratory effort and no intercostal retractions CV: RRR, no murmurs Abdomen: Soft, non-tender; no masses or hepatosplenomegaly Extremities: No peripheral edema or extremity lymphadenopathy Skin: Normal temperature, turgor and texture; no rash, ulcers or subcutaneous nodules Psych: Appropriate affect, alert and oriented to person, place and time. Neuro: alert and oriented x 3. Moving all extermities Lines: No CVL / PICC - Constitutional Vitals: Vital Signs Temp Pulse Resp BP Pulse Ox 98.5 F 83 18 111/71 99 02/10/18 11:58 02/10/18 11:58 02/10/18 11:58 02/10/18 11:58 02/10/18 11:58 Temperature -Last 24 Hours Temperature 98.5 F Temperature 97.4 F Temperature 98.6 F Temperature 98.7 F - Labs CBC & Chem 7: 02/10/18 10:07 02/08/18 02:31 Labs: Abnormal lab results 02/10/18 Range/Units 10:07 Hct 34.9 L (35.5-45.6) %
--- NOTE | 2018-02-10 14:29 | Progress Note ---
Assessment and Plan Assessment and plan: Abdominal pain. Etiology unclear For MRI Abdomen today to further evaluate Appendicitis ruled ou Bright red blood per rectum. Monitor H/H GI following HIV infection. ID Physician following Fever. Blood cultures ordered, no growth Full code status History Interval history: Abdominal pain, Bright red blood per rectum Fever resolved. No fever X 3 days Hospitalist Physical - Physical exam Narrative exam: GEN:Not in acute distress, lying in bed HEENT: Normocephalic, atraumatic, Neck: supple, No JVD Lungs: Clear to auscultaion bilaterally, no crackles Heart:S1 and S2 reg, no murmurs, rubs or gallop Abd:soft, non-tender, non-distended, Normal bowel sounds Ext: No edema, clubbing or cyanosis Neuro: Awake, alert, oriented X 3, Moves all extremities - Constitutional Vitals: Temp Pulse Resp BP Pulse Ox 98.5 F 83 18 111/71 99 02/10/18 11:58 02/10/18 11:58 02/10/18 11:58 02/10/18 11:58 02/10/18 11:58 Results - Labs CBC & Chem 7: 02/10/18 10:07 02/08/18 02:31 Labs: Laboratory Last Values WBC 3.8 K/mm3 (4.5-11.0) L 02/09/18 05:50 RBC 3.59 M/mm3 (3.65-5.03) L 02/09/18 05:50 Hgb 11.9 gm/dl (11.8-15.2) 02/10/18 10:07 Hct 34.9 % (35.5-45.6) L 02/10/18 10:07 MCV 92 fl (84-94) 02/09/18 05:50 MCH 31 pg (28-32) 02/09/18 05:50 MCHC 34 % (32-34) 02/09/18 05:50 RDW 15.0 % (13.2-15.2) 02/09/18 05:50 Plt Count 176 K/mm3 (140-440) 02/09/18 05:50 Lymph % (Auto) 16.5 % (13.4-35.0) 02/08/18 02:31 [place] % (Auto) Line Therapist 02/09/18 05:50 Eos % (Auto) 0.1 % (0.0-4.3) 02/08/18 02:31 Baso % (Auto) 0.3 % (0.0-1.8) 02/08/18 02:31 Lymph # 1.3 K/mm3 (1.2-5.4) 02/08/18 02:31 [place] # 1.1 K/mm3 (0.0-0.8) H 02/08/18 02:31 Eos # 0.0 K/mm3 (0.0-0.4) 02/08/18 02:31 Baso # 0.0 K/mm3 (0.0-0.1) 02/08/18 02:31 Add Manual Diff Complete 02/09/18 05:50 Total Counted 100 02/09/18 05:50 Seg Neutrophils % 69.4 % (40.0-70.0) 02/08/18 02:31 Seg Neuts % (Manual) 75.0 % (40.0-70.0) H 02/09/18 05:50 Band Neutrophils % 0 % 02/09/18 05:50 Lymphocytes % (Manual) 11.0 % (13.4-35.0) L 02/09/18 05:50 Reactive Lymphs % (Man) 1.0 % 02/09/18 05:50 Monocytes % (Manual) 12.0 % (0.0-7.3) H 02/09/18 05:50 Eosinophils % (Manual) 1.0 % (0.0-4.3) 02/09/18 05:50 Basophils % (Manual) 0 % (0.0-1.8) 02/09/18 05:50 Metamyelocytes % 0 % 02/09/18 05:50 Myelocytes % 0 % 02/09/18 05:50 Promyelocytes % 0 % 02/09/18 05:50 Blast Cells % 0 % 02/09/18 05:50 Nucleated RBC % Not Reportable 02/09/18 05:50 Seg Neutrophils # 5.4 K/mm3 (1.8-7.7) 02/08/18 02:31 Seg Neutrophils # Man 2.9 K/mm3 (1.8-7.7) 02/09/18 05:50 Band Neutrophils # 0.0 K/mm3 02/09/18 05:50 Lymphocytes # (Manual) 0.4 K/mm3 (1.2-5.4) L 02/09/18 05:50 Abs React Lymphs (Man) 0.0 K/mm3 02/09/18 05:50 Monocytes # (Manual) 0.5 K/mm3 (0.0-0.8) 02/09/18 05:50 Eosinophils # (Manual) 0.0 K/mm3 (0.0-0.4) 02/09/18 05:50 Basophils # (Manual) 0.0 K/mm3 (0.0-0.1) 02/09/18 05:50 Metamyelocytes # 0.0 K/mm3 02/09/18 05:50 Myelocytes # 0.0 K/mm3 02/09/18 05:50 Promyelocytes # 0.0 K/mm3 02/09/18 05:50 Blast Cells # 0.0 K/mm3 02/09/18 05:50 WBC Morphology Not Reportable 02/09/18 05:50 Hypersegmented Neuts Not Reportable 02/09/18 05:50 Hyposegmented Neuts Not Reportable 02/09/18 05:50 Hypogranular Neuts Not Reportable 02/09/18 05:50 Smudge Cells Not Reportable 02/09/18 05:50 Toxic Granulation Not Reportable 02/09/18 05:50 Toxic Vacuolation Not Reportable 02/09/18 05:50 Dohle Bodies Not Reportable 02/09/18 05:50 Pelger-Huet Anomaly Not Reportable 02/09/18 05:50 Andre Rods Not Reportable 02/09/18 05:50 Platelet Estimate Cons 02/09/18 05:50 Clumped Platelets Not Reportable 02/09/18 05:50 Plt Clumps, EDTA Not Reportable 02/09/18 05:50 Large Platelets Not Reportable 02/09/18 05:50 Giant Platelets Not Reportable 02/09/18 05:50 Platelet Satelliting Not Reportable 02/09/18 05:50 Plt Morphology Comment Not Reportable 02/09/18 05:50 RBC Morphology Not Reportable 02/09/18 05:50 Dimorphic RBCs Not Reportable 02/09/18 05:50 Polychromasia Not Reportable 02/09/18 05:50 Hypochromasia Not Reportable 02/09/18 05:50 Poikilocytosis Not Reportable 02/09/18 05:50 Anisocytosis 1+ 02/09/18 05:50 Microcytosis Not Reportable 02/09/18 05:50 Macrocytosis Not Reportable 02/09/18 05:50 Spherocytes Not Reportable 02/09/18 05:50 Pappenheimer Bodies Not Reportable 02/09/18 05:50 Sickle Cells Not Reportable 02/09/18 05:50 Target Cells Not Reportable 02/09/18 05:50 Tear Drop Cells Not Reportable 02/09/18 05:50 Ovalocytes Not Reportable 02/09/18 05:50 Helmet Cells Not Reportable 02/09/18 05:50 [place] Bodies Not Reportable 02/09/18 05:50 [place] Rings Not Reportable 02/09/18 05:50 Igor Cells Not Reportable 02/09/18 05:50 Bite Cells Not Reportable 02/09/18 05:50 Crenated Cell Not Reportable 02/09/18 05:50 Elliptocytes Not Reportable 02/09/18 05:50 Acanthocytes (Spur) Not Reportable 02/09/18 05:50 Rouleaux Not Reportable 02/09/18 05:50 Hemoglobin C Crystals Not Reportable 02/09/18 05:50 Schistocytes Not Reportable 02/09/18 05:50 Malaria parasites Not Reportable 02/09/18 05:50 Bola Bodies Not Reportable 02/09/18 05:50 Hem Pathologist Commnt No 02/09/18 05:50 PT 15.3 Sec. (12.2-14.9) H 02/07/18 16:20 INR 1.15 (0.87-1.13) H 02/07/18 16:20 APTT 35.1 Sec. (24.2-36.6) 02/07/18 15:07 VBG pH 7.340 (7.320-7.420) 02/07/18 16:20 Sodium 139 mmol/L (137-145) 02/08/18 02:31 Potassium 4.1 mmol/L (3.6-5.0) 02/08/18 02:31 Chloride 103.8 mmol/L (98-107) 02/08/18 02:31 Carbon Dioxide 24 mmol/L (22-30) 02/08/18 02:31 Anion Gap 15 mmol/L 02/08/18 02:31 BUN 8 mg/dL (9-20) L 02/08/18 02:31 Creatinine 1.0 mg/dL (0.8-1.5) 02/08/18 02:31 Estimated GFR > 60 ml/min 02/08/18 02:31 BUN/Creatinine Ratio 8 % 02/08/18 02:31 Glucose 100 mg/dL (75-100) 02/08/18 02:31 Lactic Acid 1.40 mmol/L (0.7-2.0) 02/07/18 20:02 Calcium 8.5 mg/dL (8.4-10.2) 02/08/18 02:31 Magnesium 1.90 mg/dL (1.7-2.3) 02/07/18 16:20 Total Bilirubin 0.60 mg/dL (0.1-1.2) 02/07/18 15:07 AST 24 units/L (5-40) 02/07/18 15:07 ALT 13 units/L (7-56) 02/07/18 15:07 Alkaline Phosphatase 75 units/L (35-129) 02/07/18 15:07 C-Reactive Protein 6.10 mg/dL (0.00-1.30) H 02/08/18 20:45 Total Protein 9.2 g/dL (6.3-8.2) H 02/07/18 15:07 Albumin 4.4 g/dL (3.9-5) 02/07/18 15:07 Albumin/Globulin Ratio 0.9 % 02/07/18 15:07 Lipase 14 units/L (13-60) 02/07/18 15:07 Urine Color Yellow (Yellow) 02/07/18 19:45 Urine Turbidity Clear (Clear) 02/07/18 19:45 Urine pH 5.0 (5.0-7.0) 02/07/18 19:45 Ur Specific [place] 1.026 (1.003-1.030) 02/07/18 19:45 Urine Protein <15 mg/dl mg/dL (Negative) 02/07/18 19:45 Urine Glucose (UA) Neg mg/dL (Negative) 02/07/18 19:45 Urine Ketones Neg mg/dL (Negative) 02/07/18 19:45 Urine Blood Mod (Negative) 02/07/18 19:45 Urine Nitrite Neg (Negative) 02/07/18 19:45 Urine Bilirubin Neg (Negative) 02/07/18 19:45 Urine Urobilinogen < 2.0 mg/dL (<2.0) 02/07/18 19:45 Ur Leukocyte Esterase Neg (Negative) 02/07/18 19:45 Urine WBC (Auto) 2.0 /HPF (0.0-6.0) 02/07/18 19:45 Urine RBC (Auto) 50.0 /HPF (0.0-6.0) 02/07/18 19:45 U Epithel Cells (Auto) 1.0 /HPF (0-13.0) 02/07/18 19:45 Urine Mucus 1+ /HPF 02/07/18 19:45 RPR Nonreactive (Nonreactive) 02/08/18 20:45 Group A Strep Rapid Negative (Negative) 02/08/18 Unknown Blood Type O NEGATIVE 02/07/18 15:07 Antibody Screen Negative 02/07/18 15:07
--- NOTE | 2018-02-10 21:44 | Magnetic Resonance Report ---
FINAL REPORT PROCEDURE: MR PELVIS WO CON TECHNIQUE: Magnetic resonance imaging of the pelvis was performed using standard sequences. CPT 17521 HISTORY: rectal pain, abscess? COMPARISON: No prior studies are available for comparison. FINDINGS: Prostate gland: Normal. Seminal vesicles: Normal. Bladder: Normal. Pelvic musculature: Normal. Free fluid: Minimal degree free fluid is noted in the pelvic cavity Adenopathy or mass: Multiple nonenlarged lymph nodes are noted in bilateral superficial inguinal regions. There is no evidence of any fluid collection in the pelvis. IMPRESSION: No evidence of acute abnormality as visualized on this noncontrast study. No evidence of abscess formation Minimal free fluid is noted in the pelvic cavity.
[2018-02-11] MEDS: FLAGYL 500 MG/100 ML 500 MG/100 ML BAG IV SCH (06:22)
[2018-02-11] MEDS: NACL 0.9% 1000 ML 1,000 ML IV SCH (06:29)
[2018-02-11] MEDS: VALTREX PO SCH (08:00)
--- NOTE | 2018-02-11 08:27 | Progress Note ---
Assessment and Plan ssessment: 1) SIRS: Improving Etiology unclear. DDX:, influenza, proctitis/rectal abscess/ STD.. Doubt opportunistic infection. - Rapid Strep test negative - Influenza -negative - Strep culture - pending -RPR- negative - Blood culture - ngtd -Urine culture - ngtd -Chest xray - neg 2) HIV infection: since 2012, last RS3=836, VL undetectable in October 2017, his HIV provider is in [place]. Takes complera. He moved to [place] 1 y and 1/2 ago but he has not established HIV care here. He went to [place] in October and saw his PCP -CRP - 6.1. 3) Rectal pain/bleeding: DDx: proctitis/rectal trauma infected/abscess/STD (HSV/ syphilis/HSV/Chlamydia/LGV). He is MSM. He reported to one of the providers symptoms developed after anal intercourse last week, however he reported to me that last anal intercouse was 2 months ago. Of note, last colonoscopy was in [place] in 2016 which revealed a possible abscess that required draining per patient. -Occult blood positive. -CT showed appendix mildly dilated, rectum had normal appearance - The patient had a colonoscopy in 2017. Per GI, "no strong clinical suspicion of abscess, but likely has minor fissure or trauma". Endoscopic study not done in light of resolving symptoms -Pelvic MRI Prostate gland Normal. Seminal vesicles Normal. Multiple nonenlarged lymph nodes are noted in bilateral superficial inguinal regions. No evidence of abscess formation Plan: -follow up on HSV serology -continue ceftriaxone D3 -continue flagyl D4 -continue doxycyclineD4 -stop valtrex -continue complera -Upon discharge will treat with Doxycycline 100 mg po, 2x a day for a total of 21 days ending 02-28-18 and Augmentin 875 mg, po every 12 hours for a total of 14 days ending 02-22-18 for proctitis. Prescriptions on chart. Will follow up in the office 03-03-18. Will sign off Subjective Principal diagnosis: minor rectal bleeding and anorectal pain Interval history: Patient was sitting up in bed. Patient stated that he was better today and anxious to go home. Blood cultures: 02/07 ngtd Urine cultures: 02/07 neg Current Antimicrobials: ceftriaxone 02/09 Doxycyline 02/08 flagyl - 02/08 Previous Antimicrobials: Objective - Exam Narrative Exam: eneral appearance: Alert in NAD, conversant Eyes: anicteric sclerae, moist conjunctivae; no lid-lag; PERRLA HENT: Atraumatic; oropharynx + erthematous edematous tonsils and no mucosal ulcerations/no oral thrush; normal hard and soft palate. Normal external ears. Neck: Trachea midline; supple, no thyromegaly or lymphadenopathy Lungs: CTA, with normal respiratory effort and no intercostal retractions CV: RRR, no murmurs Abdomen: Soft, non-tender; no masses or hepatosplenomegaly Extremities: No peripheral edema or extremity lymphadenopathy Skin: Normal temperature, turgor and texture; no rash, ulcers or subcutaneous nodules Psych: Appropriate affect, alert and oriented to person, place and time. Neuro: alert and oriented x 3. Moving all extermities Lines: No CVL / PICC - Constitutional Vitals: Vital Signs Temp Pulse Resp BP Pulse Ox 98.2 F 74 18 101/67 99 02/11/18 05:27 02/11/18 05:27 02/11/18 05:27 02/11/18 05:27 02/11/18 05:27 Temperature -Last 24 Hours Temperature 98.2 F Temperature 97.5 F Temperature 98.7 F Temperature 98.5 F - Labs CBC & Chem 7: 02/10/18 10:07 02/08/18 02:31 Labs: Abnormal lab results 02/10/18 Range/Units 10:07 Hct 34.9 L (35.5-45.6) %
[2018-02-11] MEDS: ROCEPHIN/NS 2 GM/100 ML 2 GM/100 ML BAG IV SCH (09:42)
[2018-02-11] MEDS: SODIUM CHLORIDE FLUSH SYRINGE 10 ML IV SCH (09:43)
[2018-02-11] MEDS: DOXYCYCLINE HYCLATE 100 MG in NACL 0.9% 250ML 250 ML IV SCH (11:18)
--- NOTE | 2018-02-11 11:36 | Discharge Summary ---
Providers - Providers Date of Admission: 02/07/18 23:27 Date of discharge: 02/11/18 Attending physician: PIETRO IRWIN 02/07/18 22:04 Consult to Physician [CONS] Urgent Comment: Consulting Provider: DIMITRY PORRAS Physician Instructions: Reason For Exam: ct possible appy 02/08/18 02:12 Consult to Physician [CONS] Routine Comment: Consulting Provider: MARY SAHU Physician Instructions: Reason For Exam: BPR 02/08/18 09:41 Consult to Physician [CONS] Routine Comment: Consulting Provider: MELISSA KAMINSKI Physician Instructions: consult ID Reason For Exam: HIV, fever Primary care physician: RECEIVER/LABORER Hospitalization Condition: Fair Disposition: DC-01 TO HOME OR SELFCARE Core Measure Documentation - Palliative Care Palliative Care/ Comfort Measures: Not Applicable - Core Measures Any of the following diagnoses?: none Exam - Constitutional Vitals: Temp Pulse Resp BP Pulse Ox 98.2 F 74 18 101/67 99 02/11/18 05:27 02/11/18 05:27 02/11/18 05:27 02/11/18 05:02/11/18 05:27 Plan Activity: no restrictions Diet: regular Additional Instructions: 1.Follow up with PCP in 1 week. 2.Follow up with Dr. Lewis, [facility] Physician on 03/03/18. Follow up with: PRIMARY CARE, [Primary Care Provider] - 3-5 Days Forms: Work/School Release Form Prescriptions: Amoxicillin/K Clav Tab [Augmentin 875 mg] 1 tab PO Q12HR 12 Days #24 tab Doxycycline [Vibramycin CAP] 100 mg PO Q12HR 18 Days #36 capsule
[2018-02-11 12:01] VITALS: BP 96/64
== END 2018-02-11 14:40 | disposition home or self-care (01) | DRG 393 ==
LOC: ED 14:15 → 3A 23:27
PROVIDERS: ADMIT Internal Medicine; ATTEND Internal Medicine
DX: K60.2 Anal fissure, unspecified (principal); B20 Human immunodeficiency virus [HIV] disease; R65.10 Systemic inflammatory response syndrome (SIRS) of non-infectious origin without acute organ dysfunction; K38.8 Other specified diseases of appendix; Z82.49 Family history of ischemic heart disease and other diseases of the circulatory system
CPT/HCPCS: 36415; 71045; 72195; 74177; 80048; 80053; 81001; 82140; 82271; 82805; 83690; 83735; 85007; 85014; 85018; 85025; 85610; 85730; 86140; 86592; 86695; 86696; 86850; 86900; 86901; 87040; 87086; 87116; 87400; 87430; 87497; 87591; 93005; 93010; 96361; 96365; 96375; J0696; J2270; J2405; J2543; J7030; J7050; Q9967